=== PATIENT | female | born 1935 | race Caucasian/White ===

== ENCOUNTER 2018-08-04 08:13 | Inpatient (IN) | payer OTHER ==
[~2018-08-04] VITALS: Ht 167.6 cm; Wt 89.1 kg
[2018-08-04] VITALS (30 sets, daily range): BP systolic 101–143; BP diastolic 44–77
[2018-08-04 08:52] LABS: CALCIUM 10.6 mg/dL (8.5-10.1); CREATININE 1.7 mg/dL (0.6-1.0)
[2018-08-04 08:57] LABS: POTASSIUM 2.9 mmol/L (3.5-5.1)
[2018-08-04] MEDS ORDERED: ASPIR 8181 MG PO (09:05)
[2018-08-04 09:06] LABS: HEMATOCRIT 41.7 % (37.0-47.0); HEMOGLOBIN 14.2 gm/dL (12.0-15.0); MCH 32.6 pg (26.0-34.0); MCHC 34.1 g/dL (28.0-37.0); MCV 95.7 fL (80.0-100.0); RBC 4.35 mil/uL (4.20-5.00); RDW 12.8 % (10.5-14.5); WBC 8.6 thou/uL (4.0-11.0)
[2018-08-04] MEDS ORDERED: PLAVIX 75 MG TA75 M1 PO (09:06)
[2018-08-04] MEDS ORDERED: COENZYME Q10100 MG PO (09:06)
[2018-08-04] MEDS ORDERED: FLAXSEED OIL1000 MG PO (09:07)
[2018-08-04] MEDS ORDERED: DHEA 2525 MG PO (09:07)
[2018-08-04] MEDS ORDERED: FOLIC ACID1 MG PO (09:08)
[2018-08-04] MEDS ORDERED: GLUCOSAMINE HC500 MG PO (09:09)
[2018-08-04] MEDS ORDERED: HYALURONIC ACI1 EACH PO (09:10)
[2018-08-04] MEDS ORDERED: IRBESARTAN300 MG PO (09:10)
[2018-08-04] MEDS ORDERED: SYNTHROID100 MC1 PO (09:10)
[2018-08-04] MEDS ORDERED: PROBIOTIC1 EAC1 PO (09:11)
[2018-08-04] MEDS ORDERED: LUTEIN40 MG PO (09:11)
[2018-08-04] MEDS ORDERED: PSYLLIUM FIBE0.52 GM PO (09:12)
[2018-08-04] MEDS ORDERED: ZOCOR20 MG PO (09:12)
--- NOTE | 2018-08-04 12:43 | EKG ---
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
[2018-08-05] VITALS (66 sets, daily range): BP systolic 98–134; BP diastolic 38–61
[2018-08-05 04:41] LABS: HEMATOCRIT 34.7 % (37.0-47.0); MCH 32.7 pg (26.0-34.0); MCHC 34.1 g/dL (28.0-37.0); RBC 3.62 mil/uL (4.20-5.00); WBC 7.6 thou/uL (4.0-11.0)
[2018-08-05 04:44] LABS: CALCIUM 9.4 mg/dL (8.5-10.1); CREATININE 1.2 mg/dL (0.6-1.0)
[2018-08-05 05:00] LABS: HEMOGLOBIN 11.8 gm/dL (12.0-15.0)
--- NOTE | 2018-08-05 05:55 | NUR ---
REPORT RECIEVED FROM SB OLIVEROS AT 2300. AOX4. C/O PAIN, MEDICATED FOR PAIN. AFEBRILE. AFIB ON MONITOR. 2L NC, DESATS IN SLEEP. LEFT GROIN CATH SITE WITH SHEATH IN PLACE. PT EDUCATED ABOUT LAYING FLAT. BLOOD OOZING FROM SITE. LEFT GROIN DRESSING CHANGED AT 0330, PRESSURE HELD FOR APPROXIMATELY 5 MINUTES. LEFT GROIN DRESSING CURRENTLY C/D/I. TPA AND INTEGRILIN FLOWING THROUGH LEFT GROIN. URINE OUTPUT NOTED. NPO AFTER MIDNIGHT. NO COMPLAINS PRESENTLY. WILL CONNTINUE TO MONITOR.
--- NOTE | 2018-08-05 07:30 | NUR ---
ASSUMED CARE OF PT AT 1900. PT ALERT AND ORIENTED X4. NO SIGNS OF ACTIVELY BLEEDING NOTED. HGB THIS AM 6.4. CALLED DR PALMA TO REPORT CRITICAL LAB VALUE ORDERS FOR TRANSUSION GIVEN. PT SR ON THE MONITOR. TACHYCARDIC WITH ACTIVITY. PT DENIES ANY PAIN. NO BM THIS SHIFT. GOOD UO. PT DOES DRIBBLE. LINENS CHANGED THIS MORNING.
[2018-08-05] MEDS ORDERED: ELIQUIS5 MG PO (10:47)
--- NOTE | 2018-08-06 08:38 | DSS ---
[facility] [place] [address] SHORT STAY SUMMARY Name: JORGE GUZMÁN Room #: 236-P [facility]#: [id number] Admission: 08/04/18 Attend Phys: Danny Caldwell MD Discharge: 08/05/18 Date of : 37 Report #: [id number] THIS REPORT FOR: //name// CC: Curtis Nicole DATE OF SERVICE: 08/04/2018 CHIEF COMPLAINT: Right foot pain. HISTORY OF PRESENT ILLNESS: The patient is an 82-year-old female who was admitted by Dr. Caldwell for evaluation and treatment of peripheral artery disease. She has been having a resting ischemic type right foot pain for several months. She has previously had a stent graft and atherectomy in the right leg in January of last year; however, symptoms have progressed and she is admitted for evaluation. There was also concern of an embolic event due to a new diagnosis of atrial fibrillation. She has undergone angiogram and had transcatheter thrombolysis overnight. She has had a followup study this morning and thrombolysis has been discontinued. The plans are for her to discharge later today. PAST MEDICAL HISTORY: Graves' disease, breast cancer, dyslipidemia, hypertension, peripheral artery disease with prior stent graft in the right leg, paroxysmal atrial fibrillation. PAST SURGICAL HISTORY: Mastectomy, ankle surgery, cholecystectomy, hysterectomy, right total knee replacement, skin cancer. FAMILY HISTORY: Noncontributory. SOCIAL HISTORY: No drug or alcohol use, no smoking. Lives at home. ALLERGIES: None. MEDICATIONS: Plavix 75 mg, Zocor 20 mg, irbesartan 300 mg, aspirin 81 mg, acidophilus, fiber, Levoxyl, folic acid and some [id number] supplements. REVIEW OF SYSTEMS: She denies headache, chest pain, shortness of breath, abdominal pain, nausea, vomiting, diarrhea, constipation, dysuria, syncope. PHYSICAL EXAMINATION: VITAL SIGNS: Temperature 36.7, pulse 74, respirations 12, blood pressure 122/57, O2 sat 98% on room air. GENERAL: She is awake and alert, lying in bed, in no distress. HEAD AND NECK: Unremarkable. [facility] [address] [place] [address] SHORT STAY SUMMARY Name: JORGE GUZMÁN Room #: 236-P [facility]#: [id number] Admission: 08/04/18 Attend Phys: Danny Caldwell MD Discharge: 08/05/18 Date of : 39 Report #: [id number] LUNGS: Clear. HEART: Irregular. ABDOMEN: Soft, normoactive bowel sounds. EXTREMITIES: Trace edema. NEUROLOGIC: Motor strength 5/5 throughout. She is alert and oriented. HOSPITAL COURSE: She had been watched in ICU post-procedure overnight. I reviewed IR study reports and spoke to the nurse and daughter at bedside. She has had the peripheral artery disease treated and the plan will be to discharge home. She also reports a nonresponse to oral pain medication at home and her daughter and I agreed to a short course of oral morphine for pain management of the ischemic pain in the right leg. She will then follow up in the office for continued treatment following this. I do not anticipate this being a long-term use situation. On the day of discharge, she was resting in bed and vitals were stable and exam was unremarkable as noted above. FINAL DIAGNOSES: 1. Atrial fibrillation. 2. Peripheral artery disease. 3. Ischemic pain in the right foot. PLAN: She will be discharged to home to resume usual medications plus Eliquis and morphine 5 mg p.r.n. pain. Follow up with Dr. Falk in one week. <ELECTRONICALLY SIGNED> By: Danny Nicole MD 08/06/18 0838 [id number] Danny Nicole MD /nt
== END 2018-08-05 17:52 | disposition home or self-care (01) | DRG 299 ==
LOC: SPEC 08:13 → ICU 17:24 → SPEC 17:25 → ICU 17:25
PROVIDERS: Nuclear Medicine Nuclear Cardiology; Nurse Practitioner Gerontology; ADMIT Internal Medicine Geriatric Medicine
DX: I74.3 Embolism and thrombosis of arteries of the lower extremities (principal); N17.0 Acute kidney failure with tubular necrosis; I73.9 Peripheral vascular disease, unspecified; I48.91 Unspecified atrial fibrillation; I10 Essential (primary) hypertension; E78.5 Hyperlipidemia, unspecified; E03.9 Hypothyroidism, unspecified; Z96.651 Presence of right artificial knee joint; E87.6 Hypokalemia; Z85.3 Personal history of malignant neoplasm of breast; Z79.899 Other long term (current) drug therapy; Z98.49 Cataract extraction status, unspecified eye; Z90.49 Acquired absence of other specified parts of digestive tract; Z90.710 Acquired absence of both cervix and uterus; Z86.711 Personal history of pulmonary embolism; Z90.10 Acquired absence of unspecified breast and nipple
CPT/HCPCS: 10078

== ENCOUNTER → 2018-12-17 | Outpatient (CLI) | payer OTHER ==
[~2018-12-17] VITALS: Ht 165.1 cm; Wt 83.0 kg
[~2018-12-17] MED LIST: ASPIR 8181 MG PO; CALCIUM PO; COENZYME Q10100 MG PO; CYCLOBENZAPRINE5 MG PO; DHEA 2525 MG PO; ELIQUIS5 MG PO; FLAXSEED OIL1000 MG PO; FOLIC ACID1 MG PO; GLUCOSAMINE CH1 EA10 PO; HYALURONIC ACI1 EACH PO; HYDROCHLOROTHIA25 M2 PO; IRBESARTAN300 MG PO; LUTEIN40 MG PO; MULTI VITAMIN1 EACH PO; OXYCODONE-ACET1 EACH PO; PLAVIX 75 MG TA75 M1 PO; PROBIOTIC1 EAC1 PO; PSYLLIUM FIBE0.52 GM PO; SYNTHROID100 MC1 PO; TRAMADOL 50 MG50 MG PO; VITAMIN D5000 UNIT PO; VOLTAREN GEL 1100 G1 TOP; ZOCOR20 MG PO
--- NOTE | ~2018-12-17 | HPC ---
[facility] [address] [place] [address] PAIN MANAGEMENT CONSULTATION Name: JORGE GUZMÁN Room #: REG [facility]#: [id number] Admission: 12/17/18 ������������������ Attend Phys: Gary Paula MD Discharge: ������������������ Date of : 37 Report #: [id number] THIS REPORT FOR: //name// CC: Curtis Paula DATE OF SERVICE: 12/17/2018 CHIEF COMPLAINT: Intense upper back pain. HISTORY OF PRESENT ILLNESS: The patient is an 83-year-old female who has been referred to the pain clinic because of pain, which she has been experiencing in her upper back. Notes that this pain started about 2008. She notes that the pain has been worse over the last 6-8 months. It starts in her upper back, radiates down into her right waist area. Notes that the pain is problematic day in and day out. She has tried heating pads in the past. She has tried rocking back and forth on it to help decrease the pain. She has tried chiropractic treatment. Has had some discomfort in the right shoulder area. Notes that the pain can be problematic after driving for about 5 minutes. has tried hydrocodone. The patient has also had some pain in the right knee and has had a stent placed in her right lower leg. She is anticoagulated because of this. She describes the discomfort as aching, crushing, pulling, throbbing, and sharp. Feels that there is a burning component to it. Rates it as a 10/10 today. Pain improves somewhat after use of heat as well as when bending forward. ALLERGIES: No known drug allergies. CURRENT MEDICATIONS: Vitamin D 5000 units, multivitamins 1 tablet daily, calcium 1200 mg, Flexeril 5 mg t.i.d., oxycodone 5/325 q. 6 hours p.r.n., hydrochlorothiazide 25 mg, Eliquis 5 mg b.i.d., Zocor 20 mg, psyllium fiber, lactobacillus probiotic, Lutein 40 mg, Synthroid 100 mcg, irbesartan 300 mg, hyaluronic acid 40 mg, glucosamine chondroitin 2 tablets, folic acid 1 mg, flaxseed oil, DHEA capsule 25 mg, co-enzyme-Q 10 mg, aspirin 81 mg chewable. PAST MEDICAL HISTORY: Hypertension, gallbladder disease, atrial fibrillation, hypokalemia, history of PE, Graves' disease, joint disease/arthritis. PAST SURGICAL HISTORY: Cholecystectomy, cataracts. 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 REVIEW OF SYSTEMS: Generally good health, fatigue, weakness, cataracts, hearing loss, chronic respiratory/cough, numbness and tingling sensation of right foot. LABORATORY DATA: No new laboratory values are available at the time of our interview. [address] [address] PAIN MANAGEMENT CONSULTATION Name: JORGE GUZMÁN [id number] Admission: 12/17/18 ������������������ Attend Phys: Gary Paula MD Discharge: ������������������ Date of : 37 Report #: [id number] PAIN CLINIC ASSESSMENT/PQRS: 1. Left lower extremity. The patient is not being treated for rheumatoid arthritis. 2. Height 5 feet 5 inches, weight 183 pounds, BMI is 30.5. 3. VITAL SIGNS: Blood pressure 101/58, pulse 111, respiratory rate 20, room air saturation is 100%, pulse 100. 4. Pain intensity 10/10. 5. Fall risk. The patient has not fallen in the last 3 months. 6. Blood thinner. The patient is on a blood thinner, Eliquis. She will stop this medication prior to an injection. 7. Hypertension. The patient is being treated for hypertension. 8. Opioids greater than 6 weeks. 9. Risk assessment tool, low for opioids. 10. Functional assessment tool 64/70. 11. Recreational drug use. The patient denies use of recreational drugs. 12. Tobacco: The patient has never smoked. 13. Alcohol: The patient drinks about one alcoholic beverage monthly. PHYSICAL EXAMINATION: GENERAL: The patient is a well-developed, well-nourished white female. Appears her stated age. She is alert and oriented x 3. Her affect is appropriate. Speech is fluent. HEENT: Normocephalic, atraumatic. Extraocular eye muscles intact. Sclerae nonicteric. Mucous membranes are moist. The patient is wearing glasses. NECK: Without adenopathy or JVD. HEART: History of atrial fibrillation regular today. LUNGS: Clear to auscultation. ABDOMEN: Protuberant. EXTREMITIES: Upper extremity muscle strength judged to be 4+/5 for the major muscle groups in the upper extremity. The patient has some pain and discomfort on the right side with pain that is radiating down from about the bra line to the L3-L4 paraspinous area on the right. Palpation in the area of the right rhomboid causes some reproduction of her discomfort. The patient has some discomfort in the area of the right deltoid as well. Lower extremity muscle strength judged to be 5-/5 for the major muscle groups in the lower extremity. IMPRESSION: 1. Myofascial pain, right shoulder area. 2. Hypertension. 3. Gallbladder disease. 4. Atrial fibrillation. 5. Hypokalemia. 6. History of pulmonary embolism. 7. Graves' disease. 8. Joint disease/arthritis. [facility] [address] [place] [address] PAIN MANAGEMENT CONSULTATION Name: JORGE GUZMÁN Room #: REG MATT Erica.#: [id number] Admission: 12/17/18 ������������������ Attend Phys: Gary Paula MD Discharge: ������������������ Date of : 39 Report #: [id number] RECOMMENDATIONS: We discussed treatment options with the patient. Risks and benefits of a trigger point injection were discussed. The patient is having pain and discomfort in the back area. Palpation in this area does indicate an area of a nidus for pain and discomfort. The patient is on Eliquis. We have the patient refrain from taking Eliquis for 3 days. After that, she will return to the pain clinic at which time we can consider a trigger point injection to the right shoulder/back area. After the trigger point has been elucidated. We would like to thank you for letting us participate in her care. We hope she continues to improve. ��������������������������������������������� ���������������������������������������� By: ��������������������������������������������� 1528 0255 Gary Paula MD /nt
[2018-12-17 13:49] VITALS: BP 101/58
--- NOTE | 2018-12-17 14:21 | NUR ---
Pain Clinic Assessment: 1. History of Osteoarthritis: Right Lower Extremity Left Lower Extremity History of Rheumatoid Arthritis: Not Applicable 2. Height: 5 ft. 5 in. 165.1 cm. Weight: 183.0 lb. oz. 83.008 kg. Patient's BMI: 30.5 3. Vital Signs: BP: 101/58 Pulse: 111 Resp: 20 Temp: 02 Sat: 100 ECG Mon: 4. Pain Intensity: 10 5. Fall Risk: Dizziness: Y Needs help standing or walking: N Fallen in the last 3 months: N Fall risk comments: 6. Patient on Blood Thinner: ELIQUIS 7. History of Hypertension: Y 8. Opioid Therapy greater than 6 weeks: N Opiate Contract Signed: 9. Risk Assessment Tool Provided: 10. Functional Assessment Tool: 64/ 11. Recreational Drug Use: Never Drug Type: Tobacco Use: Never Smoker Tobacco Type: Amount or Packs/day: How Many Years: Alcohol Use: Yes Frequency: Monthly Quant: 1
== END ==
LOC: PAIN 07:02
DX: M79.18 Myalgia, other site (principal); M25.511 Pain in right shoulder; I10 Essential (primary) hypertension; I48.91 Unspecified atrial fibrillation; M19.90 Unspecified osteoarthritis, unspecified site; E05.00 Thyrotoxicosis with diffuse goiter without thyrotoxic crisis or storm; K82.9 Disease of gallbladder, unspecified; E87.6 Hypokalemia; M54.9 Dorsalgia, unspecified

== ENCOUNTER → 2018-12-22 | Outpatient (CLI) | payer OTHER ==
[~2018-12-22] VITALS: Ht 165.1 cm; Wt 83.0 kg
--- NOTE | ~2018-12-22 | HPC ---
[facility] [address] [place] [address] PAIN MANAGEMENT CONSULTATION Name: JORGE GUZMÁN Room #: REG MATT [facility]#: [id number] Admission: 12/22/18 ������������������ Attend Phys: Gary Paula MD Discharge: ������������������ Date of : 37 Report #: [id number] THIS REPORT FOR: //name// CC: Curtis Paula DATE OF SERVICE: 12/22/2018 CHIEF COMPLAINT: Intense pain in the upper back that radiates down to the waist. HISTORY OF PRESENT ILLNESS: The patient is an 83-year-old female who has been referred to the pain clinic for evaluation of upper back pain. The patient states that it started at or before 2008. It involves the upper portion of her back. Radiates from down near the scapula to the lower portion of her back. She rates it as a 10/10 today. Notes that the pain is exacerbated by sitting, standing, cooking. Pain improves when she is lying on her back. Has found that use of a heat pack has been helpful. Rocking back and forth can sometimes improve the condition. Pressure in the area, sometimes helpful. Describes as rhythmic. Denies any trauma or injury. She also describes it as a burning, shooting pain, which is aching, crushing, pulling, throbbing, sharp, stabbing and tender. The patient had an x-ray of her back on 11/30/2018 that showed some arthritis in her upper back. ALLERGIES: No known drug allergies. CURRENT MEDICATIONS: Vitamin D 5000 units, multivitamins 1 tablet daily, calcium 1200 mg, Flexeril 5 mg t.i.d., oxycodone 5/325 every 6 hours p.r.n., hydrochlorothiazide 25 mg, Eliquis 5 mg b.i.d., Zocor 20 mg, Psyllium fiber, lactobacillus probiotic, Lutein 40 mg, Synthroid 100 mcg, irbesartan 300 mg, hyaluronic acid 40 mg, glucosamine chondroitin 2 tablets, folic acid 1 mg, flaxseed oil, DHEA capsule 25 mg, Coenzyme Q10 100 mg, aspirin 81 mg chewable. PAST MEDICAL HISTORY: Hypertension, gallbladder disease, atrial fibrillation, hypokalemia, history of PE, Graves' disease, joint disease/arthritis. PAST SURGICAL HISTORY: Cholecystectomy, cataract removal. 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 REVIEW OF SYSTEMS: Generally good health, fatigue and weakness, cataracts, hearing loss, chronic respiratory cough, numbness and tingling sensation right foot. PAIN CLINIC ASSESSMENT/PQRS: 1. History of osteoarthritis, left lower extremity. [place] [address] PAIN MANAGEMENT CONSULTATION Name: JORGE GUZMÁN [facility] [id number] Admission: 12/22/18 ������������������ Attend Phys: Gary Paula MD Discharge: ������������������ Date of : 39 Report #: [id number] treated for rheumatoid arthritis. 2. Height 5 feet 5 inches, weight 183 pounds, BMI is 30.5. 3. VITAL SIGNS: Blood pressure 109/58, pulse 94, respiratory rate 20, room air saturation is 100%. 4. Pain intensity 10/10. 5. Fall history: The patient has not fallen in the last 3 months. 6. Blood thinner. The patient is on Eliquis. 7. Hypertension. The patient is being treated for hypertension. 8. Opioids greater than 6 weeks. The patient is not on opioid regimen on a regular basis. 9. Risk assessment tool, low for opioid use. 10. Functional assessment 64/70. 11. Recreational drug use. The patient denies. 12. Alcohol: The patient occasionally drinks alcoholic beverage. 13. Tobacco: The patient has never smoked. PHYSICAL EXAMINATION: GENERAL: The patient is a well-developed, well-nourished white female. Appears her stated age. She is alert and oriented x 3. Affect is appropriate. Speech is fluent. HEAD, EYES, EARS, NOSE, AND THROAT: Normocephalic, atraumatic. Extraocular eye muscles intact. Sclerae nonicteric. Mucous membranes moist. The patient is wearing glasses. NECK: Without JVD or adenopathy. HEART: History of atrial fibrillation. LUNGS: Generally clear to auscultation. ABDOMEN: Protuberant. EXTREMITIES: The patient has some pain and discomfort in the lower portion of her back. Palpation in the below the scapula and rhomboid area and down to the right flank area does correspond. The patient states she is having a component of her pain. The patient has some pain in the right deltoid area. Notes that her pain can become more problematic when she sits and drives for about 5 minutes. Lower extremity generally is judged to be 5-/5 for the major muscle groups in lower extremity. IMPRESSION: 1. Myofascial pain, right shoulder area. 2. Hypertension. 3. Gallbladder disease. 4. Atrial fibrillation. 5. Hypokalemia. 6. History of PE. 7. Graves' disease. 8. Joint disease/arthritis. [facility] [address] [place] [address] PAIN MANAGEMENT CONSULTATION Name: JORGE GUZMÁN Room #: REG MATT Ibrahim#: [id number] Admission: 12/22/18 ������������������ Attend Phys: Gary Paula MD Discharge: ������������������ Date of : 39 Report #: [id number] RECOMMENDATIONS: We discussed treatment options with the patient. At this juncture, she does have discrete trigger point in her right shoulder area. In the area of the rhomboids a trigger point was noted. We palpated this area. This does reproduce a component of the patient's pain. Risks and benefits of a trigger point injection were discussed. They include possibility of a pneumothorax. Possibility of worsening of pain, possibility of no improvement in pain and the patient elects to proceed. PROCEDURE NOTE: The patient was placed in the sitting position. Her back was sterilely prepped with a Betadine solution. The right rhomboid area was identified. The trigger point was noted. A 25-gauge needle was then advanced into the area of discomfort. The patient states one of the areas of comfort. A total of 80 mg Depo-Medrol, 40 mg of triamcinolone and 8 mL of 0.5% bupivacaine was injected. The patient tolerated the procedure well. There were no complications. She remained in the Pain Clinic for an appropriate amount of time. She will follow up in the future as needed. We would like to thank you for letting us to participate in her care. We hope she continues to improve. ��������������������������������������������� ���������������������������������������� By: ��������������������������������������������� 0904 1509 Gary Paula MD /SA[place]
[2018-12-22 10:59] VITALS: BP 109/58
--- NOTE | 2018-12-22 11:12 | NUR ---
Pain Clinic Assessment: 1. History of Osteoarthritis: Right Lower Extremity Left Lower Extremity History of Rheumatoid Arthritis: Not Applicable 2. Height: 5 ft. 5 in. 165.1 cm. Weight: 183.0 lb. oz. 83.008 kg. Patient's BMI: 30.5 3. Vital Signs: BP: 109/58 Pulse: 94 Resp: 20 Temp: 02 Sat: 100 ECG Mon: 4. Pain Intensity: 10 5. Fall Risk: Dizziness: Y Needs help standing or walking: Y Fallen in the last 3 months: Y Fall risk comments: 6. Patient on Blood Thinner: ELIQUIS 7. History of Hypertension: Y 8. Opioid Therapy greater than 6 weeks: N Opiate Contract Signed: 9. Risk Assessment Tool Provided: 10. Functional Assessment Tool: 64/ 11. Recreational Drug Use: Never Drug Type: Tobacco Use: Never Smoker Tobacco Type: Amount or Packs/day: How Many Years: Alcohol Use: Yes Frequency: Quant:
== END | disposition home or self-care (01) ==
LOC: PAIN 06:50
DX: M79.18 Myalgia, other site (principal); G89.29 Other chronic pain; I10 Essential (primary) hypertension; I48.91 Unspecified atrial fibrillation; M19.90 Unspecified osteoarthritis, unspecified site; Z87.19 Personal history of other diseases of the digestive system; E05.00 Thyrotoxicosis with diffuse goiter without thyrotoxic crisis or storm; Z79.899 Other long term (current) drug therapy; Z79.01 Long term (current) use of anticoagulants; Z98.890 Other specified postprocedural states; Z90.49 Acquired absence of other specified parts of digestive tract; Z86.711 Personal history of pulmonary embolism; Z79.82 Long term (current) use of aspirin

== ENCOUNTER → 2019-01-19 | Outpatient (CLI) | payer OTHER ==
[2019-01-19 09:56] VITALS: BP 72/39
--- NOTE | 2019-01-19 10:46 | NUR ---
Pain Clinic Assessment: 1. History of Osteoarthritis: Right Lower Extremity Left Lower Extremity History of Rheumatoid Arthritis: Not Applicable 2. Height: 5 ft. 5 in. 165.1 cm. Weight: lb. oz. kg. Patient's BMI: 3. Vital Signs: BP: 72/39 Pulse: 72 Resp: 16 Temp: 02 Sat: 100 ECG Mon: 4. Pain Intensity: 0 NOW PAIN JUST HITS 5. Fall Risk: Dizziness: Y Needs help standing or walking: Y Fallen in the last 3 months: N Fall risk comments: 6. Patient on Blood Thinner: ELIQUIS 7. History of Hypertension: Y 8. Opioid Therapy greater than 6 weeks: N Opiate Contract Signed: 9. Risk Assessment Tool Provided: 10. Functional Assessment Tool: 64/ 11. Recreational Drug Use: Never Drug Type: Tobacco Use: Never Smoker Tobacco Type: Amount or Packs/day: How Many Years: Alcohol Use: Yes Frequency: Quant:
--- NOTE | 2019-01-19 12:37 | NUR ---
OUR TECH TOOK PATIENT VITAL SIGNS-PATIENT WAS VERY HYPOTENSION-TOOK BLOOD PRESSURE WITH MANUAL CUFF. SITTING AND USING RIGHT ARM HER BLOOD PRESSURE WAS 82/30. I TOOK IT TO DO A DOUBLE CHECK-IT WAS 72/39. WE STOOD HER UP-SHE REPORTED FEELING DIZZY AND LIGHT HEADED-HER BLOOD PRESSURE WAS 60/32. HEART RATE WAS ANYWHERE FRON 66-108. SUGGESTED SHE GO TO ER BUT SHE DECIDED TO GO HOME AND CALL HER DOCTOR. WARNED HER TO TAKE HER TIME GETTING UP FROM A SITTING POSITION-TO USE HER WALKER AND TO MONITOR HER BLOOD PRESSURE AT HOME AND TO MAKE SURE SHE FOLLOWED UP WITH HER PCP.
--- NOTE | 2019-01-26 17:05 | HPC ---
[facility] [address] [place] [address] PAIN MANAGEMENT CONSULTATION Name: JORGE GUZMÁN Room #: REG Fran MarkelMannyMarkel#: [id number] Admission: 01/19/19 ������������������ Attend Phys: Gary Paula MD Discharge: ������������������ Date of : 37 Report #: [id number] THIS REPORT FOR: //name// CC: Curtis Paula DATE OF SERVICE: 01/19/2019 CHIEF COMPLAINT: Pain in the upper back persists. Pain in the upper shoulder, improved. HISTORY: The patient is an 83-year-old female who has been followed in the pain clinic because of chronic back pain. She has had pain, which started before 2008. Involves the upper portion of her back. Notes some pain in the area of the scapula and that it radiates down into the lower portion of her back. She noted improvement after the last injection. Pain in the upper portion of the shoulder area has improved. Still has pain in the lower portion of her back. Finds that rocking back and forth can be helpful. She denies trauma. She has had some slight occasions of lightheadedness. She is not having much pain in the back area today. She would like to consider an injection in the area that still remains sore and problematic. ALLERGIES: No known drug allergies. CURRENT MEDICATIONS: Vitamin D 5000 units, multivitamins 1 tablet, calcium 1200 mg, Flexeril 5 mg t.i.d., oxycodone 5/325 q. 6 hours, hydrochlorothiazide 25 mg, Eliquis 5 mg b.i.d., Zocor 20 mg, psyllium fiber, lactobacillus probiotic, lutein 40 mg, Synthroid 100 mcg, irbesartan 300 mg, hyaluronic acid 40 mg, glucosamine chondroitin 2 tablets, folic acid 1 mg, flaxseed oil, DHEA capsule 25 mg, co-enzyme Q10 100 mg, aspirin 81 mg chewable. PAIN CLINIC ASSESSMENT/PQRS: 1. History of osteoarthritis in the lower extremity. The patient is not being treated for rheumatoid arthritis. 2. Height 5 feet 5 inches, weight approximately 183 pounds, BMI approximately 83.1. 3. VITAL SIGNS: Blood pressure 72/39, pulse 72, respiratory rate 16, room air saturation is 100%. 4. Pain intensity 0 at this point, but sore spot is noted in the low back area. 5. Fall history: The patient has not fallen in the last 3 months. 6. Blood thinner. The patient is on Eliquis, but has stopped this with the desire to undergo an injection today. 7. History of hypertension. The patient is being treated for hypertension. 8. Opioids greater than 6 weeks. The patient is not on opioid regimen. 9. Risk assessment tool, low for opioid use. 10. Functional assessment tool 64/70. [address] [address] PAIN MANAGEMENT CONSULTATION Name: JORGE GUZMÁN Room #: REG MATT Ibrahim#: [id number] Admission: 01/19/19 ������������������ Attend Phys: Gary Paula MD Discharge: ������������������ Date of : 37 Report #: [id number] 11. Recreational drug use. The patient denies. 12. Tobacco: The patient has never smoked. 13. Alcohol: The patient occasionally drinks alcoholic beverages. PHYSICAL EXAMINATION: GENERAL: The patient is a well-developed, well-nourished white female. She appears her stated age. She is alert and oriented x 3. Affect is appropriate. Speech is fluent. The patient has had some episodes of lightheadedness. HEENT: Normocephalic, atraumatic. Extraocular eye muscles intact. Sclerae nonicteric. Mucous membranes are moist. The patient is wearing glasses. NECK: Without adenopathy or JVD. HEART: History of atrial fibrillation. The patient has heart rate varying from 80-108. LUNGS: Generally clear. ABDOMEN: Protuberant. EXTREMITIES: The patient has some pain and discomfort in the posterior portion of her back near the rhomboid area. IMPRESSION: 1. Hypotension with some orthostatic changes. 2. Hypertension. 3. Gallbladder disease. 4. Atrial fibrillation. 5. Hypokalemia. 6. History of pulmonary embolism. 7. Graves' disease. 8. Joint disease/arthritis. RECOMMENDATIONS: We discussed the situation with the patient and her daughter. The patient is having episodes where her blood pressures have been dynamic. They have fallen to systolics of 80, and a diastolic of 39. The patient does look and feels difference in her constitution. We have discussed postponing an injection until she feels better. Because of the low blood pressures, we would recommend that the patient contact her primary care physician to get direction. She may simply be volume depleted. Recommend that she drank Gatorade as well as given that she is somewhat unstable on her feet. Consider a bicycle helmet. Should she fall hopefully, this will protect her from hitting her head in the bathroom on the kitchen areas. We had a long conversation with the patient and her daughter in regards to the efficacy of wearing a helmet for head protection. She will follow up in the near future. Hopefully, over the next day things will stabilize, at which time she will return to the Pain Clinic for the possibility of ____ thoracic/trigger point injection. [facility] [address] [place] [address] PAIN MANAGEMENT CONSULTATION Name: JORGE GUZMÁN Room #: REG [facility].#: [id number] Admission: 01/19/19 ������������������ Attend Phys: Gary Paula MD Discharge: ������������������ Date of : 37 Report #: [id number] We would like to thank you for letting us participate in her care. We hope she continues to improve. ��������������������������������������������� <ELECTRONICALLY SIGNED> ���������������������������������������� By: Gary Paula MD ��������������������������������������������� 01/26/19 1705 1610 2326 Gary Paula MD /nt
== END ==
LOC: PAIN 01-12 13:18
DX: M54.9 Dorsalgia, unspecified (principal); M25.519 Pain in unspecified shoulder; I10 Essential (primary) hypertension; I48.91 Unspecified atrial fibrillation; K82.9 Disease of gallbladder, unspecified; I95.1 Orthostatic hypotension; E87.6 Hypokalemia; E05.00 Thyrotoxicosis with diffuse goiter without thyrotoxic crisis or storm; M19.90 Unspecified osteoarthritis, unspecified site; Z88.8 Allergy status to other drugs, medicaments and biological substances; Z86.711 Personal history of pulmonary embolism

== ENCOUNTER → 2019-01-21 | Outpatient (CLI) | payer OTHER ==
[2019-01-21 12:49] VITALS: BP 140/62
--- NOTE | 2019-01-21 12:55 | NUR ---
Pain Clinic Assessment: 1. History of Osteoarthritis: Right Lower Extremity Left Lower Extremity History of Rheumatoid Arthritis: Not Applicable 2. Height: 5 ft. 5 in. 165.1 cm. Weight: lb. oz. kg. Patient's BMI: 3. Vital Signs: BP: 140/62 Pulse: 71 Resp: 18 Temp: 02 Sat: 100 ECG Mon: 4. Pain Intensity: 0 NOW PAIN 9-10 WHEN HIT 5. Fall Risk: Dizziness: N Needs help standing or walking: N Fallen in the last 3 months: N Fall risk comments: 6. Patient on Blood Thinner: ELIQUIS 7. History of Hypertension: Y 8. Opioid Therapy greater than 6 weeks: N Opiate Contract Signed: 9. Risk Assessment Tool Provided: 10. Functional Assessment Tool: 64/ 11. Recreational Drug Use: Never Drug Type: Tobacco Use: Never Smoker Tobacco Type: Amount or Packs/day: How Many Years: Alcohol Use: Yes Frequency: Quant:
--- NOTE | 2019-01-26 17:05 | HPC ---
[facility] [address] [place] [address] PAIN MANAGEMENT CONSULTATION Name: JORGE GUZMÁN Room #: REG [facility] [place]#: [id number] Admission: 01/21/19 ������������������ Attend Phys: Gary Paula MD Discharge: ������������������ Date of : 37 Report #: [id number] THIS REPORT FOR: //name// CC: Curtis Paula DATE OF SERVICE: 01/21/2019 CHIEF COMPLAINT: "I am feeling better." HISTORY: The patient is an 83-year-old female who has been seen in the pain clinic in the past because of shoulder and back pain. She was seen recently in the pain clinic. She has had systolic blood pressures of about 80. She was also exhibiting some orthostatic changes. She states she went to her primary physician. Her blood pressure medication has been changed. She is feeling much better at this point. She has returned today for an injection in the mid back area, which has been problematic. She underwent a trigger point injection to one trigger point in the shoulder and scapular area and trigger point has improved. Still has some pain and discomfort in the area of the lower back near the right side. ALLERGIES: No known drug allergies. CURRENT MEDICATIONS: Vitamin D 5000 units, multivitamin 1 tablet daily, calcium 1200 mg, Flexeril 5 mg t.i.d., oxycodone 5 mg one p.o. 4-6 hours, hydrochlorothiazide 25 mg, Eliquis 5 mg b.i.d., Zocor 20 mg, psyllium fiber, lactobacillus probiotic, Lutein 40 mg, Synthroid 100 mcg, irbesartan 300 mg, hyaluronic acid 40 mg, glucosamine chondroitin 2 tablets, folic acid 1 mg, flax seed oil, DHEA 25 mg, Coenzyme Q10 100 mg, aspirin 81 mg chewable. PAIN CLINIC ASSESSMENT/PQRS: 1. Osteoarthritis: The patient has some osteoarthritic changes in her lower extremity. The patient is not being treated for rheumatoid arthritis. 2. Height 5 feet 10 inches, weight 183 pounds, BMI is 30. 3. Vital signs: Blood pressure 140/62, heart rate 71, respiratory rate 18, room air saturation 100%. 4. Pain intensity: 0 without movement, 9-10 with activity. 5. Fall risk: The patient has not fallen in the last 3 months. 6. Blood thinner: The patient is not on a blood thinning medication. She has stopped taking her Eliquis. 7. History of hypertension: The patient is being treated for hypertension. 8. Opioids greater than 6 weeks: The patient is receiving opioid medications to help control the pain. 9. Risk assessment tool: Low for opioid use. 10. Functional assessment tool: 64/70. 11. Recreational drug use: The patient denies. [address] [address] PAIN MANAGEMENT CONSULTATION Name: JORGE GUZMÁN [id number] Admission: 01/21/19 ������������������ Attend Phys: Gary Paula MD Discharge: ������������������ Date of : 37 Report #: [id number] 12. Tobacco: The patient has never smoked. 13. Alcohol: The patient occasionally drinks alcoholic beverages. PHYSICAL EXAMINATION: GENERAL: The patient is a well-developed, well-nourished white female. Appears her stated age. She is alert and oriented x 3. Her affect is appropriate. Speech is fluent. HEENT: Normocephalic, atraumatic. Extraocular eye muscles intact. Sclerae nonicteric. Mucous membranes are moist. NECK: Without adenopathy or JVD. The patient is wearing glasses. HEART: Regular rate. History of atrial fibrillation, stable. LUNGS: Clear to auscultation without rhonchi or rales. ABDOMEN: Protuberant. EXTREMITIES: Upper extremity muscle strength judged to be 5/5 for the major muscle groups in the upper extremity. The patient has pain and discomfort in the right flank area. Has soreness and discomfort in the midback with pain in the area of approximately the 9th rib. Palpation in the area of the latissimus dorsi reproduces pain and discomfort. IMPRESSION: 1. Myofascial pain improved after injection. 2. Pain in the right low back area near the ninth rib, in the area of the latissimus dorsi. 3. Gallbladder disease. 4. Atrial fibrillation. 5. Hypokalemia. 6. History of pulmonary embolism. 7. Graves' disease. 8. Joint disease/arthritis. RECOMMENDATIONS: We discussed treatment options with the patient. The patient has undergone trigger point injection and noted improvement in the first trigger point area. Still has a second trigger point area that has remained somewhat problematic. The patient has returned today. She is feeling better. She has had the blood pressure medication changed. She is feeling much more herself. She would like to proceed with an injection. Her daughter is present. The patient was placed in the sitting position. Her back was palpated in the area of the right T9 area. Palpation over the latissimus dorsi caused a reproduction of the patient's pain. We discussed the risks and benefits of the injection, which could include infection, bleeding, worsening of pain, no improvement in pain, pneumothorax/tension pneumothorax and the patient elects to proceed. PROCEDURE NOTE: The patient was placed in the sitting position. Her back was sterilely prepped and the area of the right thoracic area near T10. Over the latissimus dorsi, palpation reproduced the patient's discomfort. This area was then infiltrated 8 mL of 0.5% bupivacaine and 40 mg triamcinolone. The patient [facility] [address] [place] [address] PAIN MANAGEMENT CONSULTATION Name: JORGE GUZMÁN Room #: REG [facility].#: [id number] Admission: 01/21/19 ������������������ Attend Phys: Gary Paula MD Discharge: ������������������ Date of : 37 Report #: [id number] states that the pain decreased. She remained in the pain clinic for an appropriate amount of time. She will follow up in the future as needed. We would like to thank you for letting us participate in her care. We hope she continues to improve. ��������������������������������������������� <ELECTRONICALLY SIGNED> ���������������������������������������� By: Gary Paula MD ��������������������������������������������� 01/26/19 1705 1454 0044 Gary Paula MD /[facility]
== END | disposition home or self-care (01) ==
LOC: PAIN 06:55
DX: M79.18 Myalgia, other site (principal); I10 Essential (primary) hypertension; K82.8 Other specified diseases of gallbladder; I48.91 Unspecified atrial fibrillation; E87.6 Hypokalemia; E05.00 Thyrotoxicosis with diffuse goiter without thyrotoxic crisis or storm; M19.90 Unspecified osteoarthritis, unspecified site; Z98.890 Other specified postprocedural states; Z79.899 Other long term (current) drug therapy

== ENCOUNTER → 2019-02-17 | Outpatient (CLI) | payer OTHER | LOC: MRI 15:00 | DX: M51.86 Other intervertebral disc disorders, lumbar region (principal); M51.87 Other intervertebral disc disorders, lumbosacral region; M48.061 Spinal stenosis, lumbar region without neurogenic claudication ==

== ENCOUNTER → 2019-02-23 | Outpatient (CLI) | payer OTHER ==
[~2019-02-23] VITALS: Ht 167.6 cm; Wt 83.5 kg
[~2019-02-23] MED LIST changes: +OMEPRAZOLE 20 M20 M1 PO
[2019-02-23 07:46] LABS: HEMATOCRIT 28.5 % (37.0-47.0); HEMOGLOBIN 9.1 gm/dL (12.0-15.0)
--- NOTE | 2019-02-23 08:44 | EKG ---
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 : 1935 Requested By: Charleen Summers Order Number: [id number] MD: Rick Wheat Measurements Intervals [place] Rate: 93 P: FL: QRS: 30 QRSD: 98 T: 10 QT: 343 QTc: 427 Interpretive Statements Atrial fibrillation Borderline ST depression, diffuse leads Compared to ECG 08/04/2018 08:57:41 no significant change was found Electronically Signed On 02-23-2019 8:44:44 CDT by Rick Wheat [email or web address] ��������������������������������������������� <ELECTRONICALLY SIGNED> ���������������������������������������� By: Rick Wheat MD, [facility] ��������������������������������������������� 02/23/19 0844 D: [id number] Rick Wheat MD, FACC /EPI
--- NOTE | 2019-03-01 14:06 | PATH ---
[facility] [address] [place] [address] PATHOLOGY RPT PROCEDURE Name: JORGE BERG Room #: REG MATT Erica.#: [id number] ������������������ Admission: 02/23/19 ������������������ Date of : 37 Discharge: Report #: [id number] Path Case #: [id number] [facility] Accession Number: [id number] . 01 Material submitted: . PART A: stomach - BX GASTRITIS PART B: cecum - BX POLYP/MASS AT ILEOCECAL VALVE PART C: colon - POLYP AT ASCENDING COLON X3. Modifiers: ascending . 01 Clinical history: . Pre-OP DX: Iron deficiency anemia, heme positive stool Post-OP DX: Gastric ulcers, gastritis, hiatal hernia, esophageal ulcers, esophagitis, ileocecal mass, colon polyps, diverticulosis, internal hemorrhoids, external hemorrhoid . 02 Diagnosis: A. Gastric mucosa, gastritis rule out H. pylori, endoscopic biopsy: - Mild reactive gastropathy. - Negative for intestinal metaplasia or atrophy. - Negative for Helicobacter pylori (properly controlled immunohistochemical stain performed). . B. Polyp/mass, at ileocecal valve, endoscopic biopsy: - INVASIVE MODERATELY DIFFERENTIATED ADENOCARCINOMA (PLEASE SEE COMMENT). - TUBULAR ADENOMA ASSOCIATED WITH HIGH-GRADE DYSPLASIA PRESENT IN THE BACKGROUND. . C. Polyp x3, ascending colon, endoscopic biopsy: - Tubular adenoma, multiple fragments. - Negative for high-grade dysplasia. (IUV:construction executive; 02/24/2019) MBR 02/24/2019 1228 Local . 02 Comment: Co-review: Dr. Essence Cowart (part B only). . Findings of this case are relayed to Dr. Serrano at approximately 12:15 p.m. on 02/24/19. . Per the [facility] cancer commitee protocol, MSI markers (four immunohistochemical stains) are ordered on block B1 and the results of these will be reported in an addendum to follow. (IUV:construction executive; 02/24/2019) . 02 Addendum: . This addendum is issued subsequent to performing four immunohistochemical stains (MSH2, MSH6, PMS2 and MLH1) on block B1 per [facility] [place] [address] PATHOLOGY RPT PROCEDURE Name: JORGE BERG Room #: REG MATT Ibrahim#: [id number] ������������������ Admission: 02/23/19 ������������������ Date of : 37 Discharge: Report #: [id number] Path Case #: [id number] protocol. . . MICROSATELLITE INSTABILITY REPORT (MSI): . Reason for testing: To evaluate for evidence of defective mismatch repair proteins. Method: Immunohistochemical staining for the presence or absence of protein expression of one or more of the following MMR protein markers: MLH1, MSH2, MSH6 and PMS2. Tumor type: Invasive adenocarcinoma . Results: MLH1 -Preserved MSH2 -Preserved MSH6 -Preserved PMS2 -Preserved . Mismatch Repair Status:MMR Proficient (MMR-P) . Interpretation: . (MMR-P) All four MMR proteins are preserved within tumor cells. This suggests the presence of normal DNA mismatch repair function within the tumor and an observable defect in mismatch repair is not identified. The likelihood that this patient has an inherited germline mutation syndrome due to defective mismatch repair is reduced but not totally eliminated. If the patient has a strong personal or family history of HPNCC/Milligan syndrome related cancers (colorectal, endometrial, gastric, ovarian, pancreatic, ureter/renal pelvis, biliary tract, brain, small bowel and [place]-Ross syndrome), consider MSI testing by PCR methodology. Suggest clinical correlation and follow up. . These test results are designed for screening purposes only and are useful tools in identifying cancer patients that are more likely to have Milligan Syndrome related diagnoses. Tests should be interpreted in the context of clinical findings, family history and laboratory data. Abnormal IHC results for MMR protein expression are not considered diagnostic for Milligan Syndrome. . (IUV:mml; 03/01/2019) . . Professional services performed by [facility] at [facility], [address] [place], [place] [address], [place] [address]. Technical services performed by [facility] at [address] [place] [address], [address], [place] [address]. [facility]/03/01/2019 Addendum Electronically Signed by Jocelyn Amos MD, Pathologist [facility] [address] [place] [address] PATHOLOGY RPT PROCEDURE Name: JORGE BERG Room #: [facility] MATT TapiaR#: [id number] ������������������ Admission: 02/23/19 ������������������ Date of : 37 Discharge: Report #: [id number] Path Case #: [id number] . 02 Electronically signed: . Jocelyn Amos MD, Pathologist NPI- [id number] . 01 Gross description: . A. Received in formalin labeled "Morena Jorge, PAULINE gastritis, rule out H. pylori," are 3 segments of saldaña soft tissue measuring 1.1 x 0.7 x 0.3 cm in aggregate dimensions and ranging from 0.3 to 0.7 cm in maximum dimension. The specimen is submitted entirely in cassette A1. . B. Received in formalin labeled "Jorge Berg, BX polyp/mass at ileocecal valve," are multiple segments of saldaña soft tissue measuring 1.7 x 0.6 x 0.1 cm in aggregate dimensions. The specimen is filtered and entirely submitted in cassette B1. . C. Received in formalin labeled "Jorge Berg, polyp at ascending colon x3," are 4 segments of saldaña soft tissue measuring 1.1 x 0.5 x 0.3 cm in aggregate dimensions and ranging from 0.3 to 0.7 cm in maximum dimension. The specimen is submitted entirely in cassette C1. (TSD; 02/23/2019) TOB/TOB 02/23/2019 1804 Local . 02 Pathologist provided ICD-10: K31.9, C18.0, D12.0, D12.2 . 02 CPT . 615961, 451393, 537090, L43324, G61302 Specimen Comment: A courtesy copy of this report has been sent to Specimen Comment: [phone], . Specimen Comment: Report sent to / DR VASQUEZ Performed at: [address] [place] [address] [address], [place], [place] [id number] MD Gustabo Botello MD Phone: [phone] Performed at: [address] [id number] MD Jocelyn Amos MD Phone: [phone]
--- NOTE | 2019-03-02 08:38 | P ---
[facility] [place] [address] PROCEDURE REPORT Name: JORGE GUZMÁN [facility]: [facility] [id number] Admission: 02/23/19 ������������������ Attend Phys: Telly Kelly Discharge: ������������������ Date of : 37 Report #: [id number] THIS REPORT FOR: //name// CC: ENRIQUETA Falk DATE OF SERVICE: 02/23/2019 PROCEDURE PERFORMED: Upper endoscopy with biopsies. HISTORY OF PRESENT ILLNESS: The patient is an 83-year-old female with a history of anemia, drop in hemoglobin from 14 to 10 recently. Hemoccult positive. She has been on aspirin and Eliquis for a history of PE, right lower extremity stent placement and history of DVT. She has been holding her anticoagulation therapy for the last week. She denies any obvious bright red blood per rectum or melena. No previous history of upper endoscopy. She denies any dysphagia or heartburn symptoms. Plan is for EGD and colonoscopy today. DESCRIPTION OF PROCEDURE: The risks and benefits of the procedure were explained to the patient, those risks including but not limited to bleeding, perforation and the risk of sedation. She understood these risks and gave informed consent. Sedation was given using propofol per anesthesia. Next, using a standard Olympus upper endoscope, the scope was placed in the patient's mouth and advanced under direct vision through the esophagus, stomach and into the second portion of the duodenum. The larynx was normal in appearance. The upper and mid esophagus was normal. In the distal esophagus, at the GE junction, grade A erosive esophagitis was noted. No evidence of bleeding. Upon entering the stomach, a small hiatal hernia was noted. Overall, the gastric mucosa was normal in the fundus and body. In the gastric antrum, a mild gastritis was noted. Two clean white based ulcers, 3-5 mm, were noted. No evidence of bleeding. Biopsies were obtained to rule out H. pylori. The pylorus was normal and patent. The duodenal bulb, first and second portion were all normal. The scope was then withdrawn and the procedure terminated. The patient tolerated the procedure well. IMPRESSION: 1. Two small gastric ulcers, nonbleeding. 2. Mild gastritis. 3. Small hiatal hernia. 4. Grade A erosive esophagitis. 5. Otherwise, normal upper endoscopy. RECOMMENDATIONS: 1. Await biopsy results. 2. Would recommend long-term PPI therapy as the patient will be on long-term [address] [address] PROCEDURE REPORT Name: JOREG GUZMÁN Room #: REG MATT Ibrahim#: [id number] Admission: 02/23/19 ������������������ Attend Phys: Telly Kelly Discharge: ������������������ Date of : 37 Report #: [id number] aspirin and Eliquis. Above findings could result in anemia, no signs of bleeding at this time. 3. We will proceed with colonoscopy next today. Thank you for allowing me to participate in her care. ��������������������������������������������� <ELECTRONICALLY SIGNED> ���������������������������������������� By: Telly Serrano MD ��������������������������������������������� 03/02/19 0838 0849 2235 Telly eSrrano MD /nt
--- NOTE | 2019-03-02 08:38 | P ---
[facility] [place] [address] PROCEDURE REPORT Name: JORGE GUZMÁN [facility] [id number] Admission: 02/23/19 ������������������ Attend Phys: Telly Kelly Discharge: ������������������ Date of : 39 Report #: [id number] THIS REPORT FOR: //name// CC: ENRIQUETA Falk DATE OF SERVICE: 02/23/2019 PROCEDURE PERFORMED: Colonoscopy with polypectomies. HISTORY OF PRESENT ILLNESS: The patient is an 83-year-old female with a history of anemia and Hemoccult positive stool. She has had a drop in her hemoglobin 14-10 recently. She has been on Eliquis and aspirin for previous history of stents and DVT as well as a history of PE in the past. She denies any obvious bright red blood per rectum or melena. She is unsure when her last colonoscopy was, but probably 7-10 years ago. No family history of colon cancer. Upper endoscopy was just performed that showed 2 small antral ulcers, no bleeding and grade A erosive esophagitis. Plan is for colonoscopy next today. DESCRIPTION OF PROCEDURE: The risks and benefits of the procedure were explained to the patient, those risks including but not limited to bleeding, perforation and the risk of sedation. She understood these risks and gave informed consent. Sedation was given using propofol per anesthesia. Next, a digital rectal exam was initially performed, which showed external hemorrhoids, nonbleeding, otherwise normal. Next, using a standard Olympus colonoscope, the scope was placed in the patient's anus and advanced under direct vision to the cecum. The overall prep was good. The cecum was normal in appearance. However, on the ileocecal valve, there appears to be adenomatous polyp type of change involving most of the entrance of the valve itself. There is also a portion there that appears to be more firm and friable suggesting the possibility of a mass or cancer. I obtained multiple biopsies of this area. Again, this involves the valve and this was not able to be removed endoscopically. There is no active bleeding noted, but I did notice traces of old blood in the ascending colon when inserting the scope in the proximal ascending colon 3, 4-6 mm sessile polyps were noted. These were removed with a combination of snare cautery and biopsy forceps. The transverse and descending colon were normal. Multiple diverticula were noted in the sigmoid colon, no evidence of inflammation. The rectal mucosa was normal. On retroflexion, small nonbleeding internal hemorrhoids were noted. The scope was then withdrawn and the procedure terminated. The patient tolerated the procedure well. IMPRESSION: 1. Polypoid changes of the entrance of the ileocecal valve with an area concerning for possible mass or cancer. No active bleeding, but friable. Suspect this may be source of recent gastrointestinal bleed and anemia. The [address] [address] PROCEDURE REPORT Name: JORGE GUZMÁN Room #: REG Fran Ibrahim#: [id number] Admission: 02/23/19 ������������������ Attend Phys: Telly Kelly Discharge: ������������������ Date of : 37 Report #: [id number] patient has been off her aspirin and Eliquis at this time. Multiple biopsies were obtained. This will need to be resected surgically. 2. Three small proximal ascending colon polyps removed. 3. Sigmoid diverticulosis. 4. Internal and external hemorrhoids. RECOMMENDATIONS: 1. Await biopsy results. 2. Would recommend surgical consultation for likely right hemicolectomy. Thank you for allowing me to participate in her care. ��������������������������������������������� <ELECTRONICALLY SIGNED> ���������������������������������������� By: Telly Serrano MD ��������������������������������������������� 03/02/19 0838 0929 2250 Telly Serrano MD /nt
== END | disposition home or self-care (01) ==
LOC: GI 07:03
PROVIDERS: Anesthesiology
DX: C18.0 Malignant neoplasm of cecum (principal); D12.0 Benign neoplasm of cecum; D12.2 Benign neoplasm of ascending colon; K31.9 Disease of stomach and duodenum, unspecified; K57.30 Diverticulosis of large intestine without perforation or abscess without bleeding; K64.8 Other hemorrhoids; K64.4 Residual hemorrhoidal skin tags; K25.9 Gastric ulcer, unspecified as acute or chronic, without hemorrhage or perforation; K44.9 Diaphragmatic hernia without obstruction or gangrene; K22.10 Ulcer of esophagus without bleeding; Z79.01 Long term (current) use of anticoagulants; Z79.82 Long term (current) use of aspirin; Z79.899 Other long term (current) drug therapy; Z98.890 Other specified postprocedural states; Z86.718 Personal history of other venous thrombosis and embolism; Z86.711 Personal history of pulmonary embolism
CPT/HCPCS: 62110; 62900

== ENCOUNTER → 2019-02-25 | Outpatient (CLI) | payer OTHER ==
[~2019-02-25] VITALS: Ht 165.1 cm; Wt 85.3 kg
[2019-02-25 12:38] VITALS: BP 161/90
--- NOTE | 2019-02-25 12:58 | NUR ---
Pain Clinic Assessment: 1. History of Osteoarthritis: Right Lower Extremity Left Lower Extremity History of Rheumatoid Arthritis: Not Applicable 2. Height: 5 ft. 5 in. 165.1 cm. Weight: 188.0 lb. oz. 85.276 kg. Patient's BMI: 31.3 3. Vital Signs: BP: 161/90 Pulse: 91 Resp: 18 Temp: 02 Sat: 100 ECG Mon: 4. Pain Intensity: 10 5. Fall Risk: Dizziness: N Needs help standing or walking: N Fallen in the last 3 months: N Fall risk comments: 6. Patient on Blood Thinner: ARANZAQUIS 7. History of Hypertension: Y 8. Opioid Therapy greater than 6 weeks: N Opiate Contract Signed: 9. Risk Assessment Tool Provided: 10. Functional Assessment Tool: 64/ 11. Recreational Drug Use: Never Drug Type: Tobacco Use: Never Smoker Tobacco Type: Amount or Packs/day: How Many Years: Alcohol Use: Yes Frequency: Quant:
== END | disposition home or self-care (01) ==
LOC: PAIN 06:52
DX: M79.18 Myalgia, other site (principal); G89.29 Other chronic pain; I48.91 Unspecified atrial fibrillation; C18.9 Malignant neoplasm of colon, unspecified; Z79.01 Long term (current) use of anticoagulants; Z98.890 Other specified postprocedural states; Z79.899 Other long term (current) drug therapy

== ENCOUNTER → 2019-03-02 | Outpatient (CLI) | payer OTHER ==
[2019-03-02 10:08] LABS: CREATININE 1.5 mg/dL (0.6-1.0)
== END ==
LOC: CAT 09:29
PROVIDERS: Specialist
DX: N28.1 Cyst of kidney, acquired (principal); D64.9 Anemia, unspecified; K57.30 Diverticulosis of large intestine without perforation or abscess without bleeding; Z90.710 Acquired absence of both cervix and uterus; Z96.651 Presence of right artificial knee joint; Z85.3 Personal history of malignant neoplasm of breast; Z79.82 Long term (current) use of aspirin; Z79.899 Other long term (current) drug therapy; Z90.49 Acquired absence of other specified parts of digestive tract

== ENCOUNTER 2019-05-05 11:39 | Observation (INO) | payer OTHER ==
[~2019-05-05] VITALS: Ht 167.6 cm; Wt 86.5 kg
[2019-05-05 12:25] LABS: HEMATOCRIT 27.8 % (37.0-47.0); HEMOGLOBIN 8.1 gm/dL (12.0-15.0); MCH 19.9 pg (26.0-34.0); MCHC 29.3 g/dL (28.0-37.0); MCV 68.1 fL (80.0-100.0); PLATELET COUNT 337 thou/uL (150-400); RBC 4.08 mil/uL (4.20-5.00); RDW 20.1 % (10.5-14.5); WBC 8.4 thou/uL (4.0-11.0)
[2019-05-05 12:39] LABS: ALBUMIN 3.1 g/dL (3.4-5.0); CALCIUM 10.3 mg/dL (8.5-10.1); CREATININE 1.6 mg/dL (0.6-1.0); TOTAL BILIRUBIN 0.3 mg/dL (<0.1-1.0)
[2019-05-05 12:40] LABS: POTASSIUM 4.4 mmol/L (3.5-5.1)
[2019-05-05 12:45] VITALS: BP 115/48
[2019-05-05 13:06] LABS: ABSOLUTE NEUTROPHILS 6.5 thou/uL (1.4-8.2); ANISOCYTOSIS 1+
[2019-05-05 13:07] LABS: HYPOCHROMASIA 1+; MICROCYTES 1+
[2019-05-05 16:00] VITALS: BP 137/42
--- NOTE | 2019-05-05 17:22 | EKG ---
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
[2019-05-05 19:27] VITALS: BP 112/43
[2019-05-05 23:28] VITALS: BP 115/43
[2019-05-05 23:56] VITALS: BP 115/43
[2019-05-06] VITALS (13 sets, daily range): BP systolic 93–149; BP diastolic 50–63
--- NOTE | 2019-05-06 08:03 | EKG ---
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 05/06/19 0803 6 Rick Wheat MD, FACC /EPI
[2019-05-06] MEDS ORDERED: AMIODARONE HCL400 MG PO (17:10)
[2019-05-06] MEDS ORDERED: CARTIA XT240 M1 PO (17:16)
[2019-05-06 17:38] LABS: HEMATOCRIT 32.2 % (37.0-47.0); HEMOGLOBIN 9.8 gm/dL (12.0-15.0)
--- NOTE | 2019-05-08 13:09 | EKG ---
[place] [address] [facility] [place] [address] ELECTROCARDIOGRAM REPORT Name: JORGE GUZMÁN Room #: 214-[facility] M.RMarkel#: [id number] Admission: 05/05/19 Attend Phys: Canelo Mota Discharge: 05/06/19 Date of : 37 Report #: [id number] THIS REPORT FOR: //name// 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 : 1935 Requested By: Marilee Lowe Order Number: [id number] MD: Rick Wheat Measurements Intervals [place] Rate: 69 P: 34 SD: 181 QRS: 34 QRSD: 96 T: 28 QT: 411 QTc: 441 Interpretive Statements Sinus rhythm Small inferior Q waves Compared to ECG 05/06/2019 07:37:22 Atrial fibrillation no longer present Electronically Signed On 05-08-2019 13:09:40 METALLURGICAL OR MATERIALS TECHNICIAN by Rick Wheat [email or web address] <ELECTRONICALLY SIGNED> By: Rick Wheat MD, [facility] 05/08/19 1309 31 31 Rick Wheat MD, FAC /EPI
== END 2019-05-06 18:14 | disposition home or self-care (01) ==
LOC: 2N 11:39 → ENTRNSPT 05-06 17:46 → 2N 05-06 18:14
PROVIDERS: Nurse Practitioner; Nurse Practitioner Adult Health; ADMIT Internal Medicine
DX: I48.0 Paroxysmal atrial fibrillation (principal); E05.00 Thyrotoxicosis with diffuse goiter without thyrotoxic crisis or storm; I10 Essential (primary) hypertension; E78.5 Hyperlipidemia, unspecified; E03.9 Hypothyroidism, unspecified; C18.9 Malignant neoplasm of colon, unspecified; C50.919 Malignant neoplasm of unspecified site of unspecified female breast; Z79.899 Other long term (current) drug therapy; Z79.82 Long term (current) use of aspirin; Z79.01 Long term (current) use of anticoagulants

== ENCOUNTER → 2019-07-20 | Outpatient (CLI) | payer OTHER ==
[~2019-07-20] VITALS: Ht 165.1 cm; Wt 81.4 kg
[~2019-07-20] MED LIST changes: +AMIODARONE HCL400 MG PO; +CARTIA XT180 M1 PO; +PACERONE200 MG PO
--- NOTE | ~2019-07-20 | HPC ---
[facility] [place] [address] PAIN MANAGEMENT CONSULTATION Name: JORGE GUZMÁN Room #: REG MATT Maldonado.#: [id number] Admission: 07/20/19 Attend Phys: Gary Paula MD Discharge: Date of : 37 Report #: [id number] THIS REPORT FOR: cc: Curtis Falk MD, Christopher B. MD Brown,Gary Martinez MD ~ THIS REPORT FOR: //name// CC: Curtis Paula DATE OF SERVICE: 07/20/2019 CHIEF COMPLAINT: Pain in the mid back area has recurred. HISTORY: The patient is an 83-year-old female who has been seen in the Pain Clinic in the past because of myofascial pain. She has experienced pain in the upper back area. Trigger points to the area have been beneficial. She has noticed over the last few days of worsening of pain in the low back area. Usually, the pain would start to decrease, but this has continued to be problematic and she rates it as an 8/10. It is on the right side. She has tried using heat, bending as well as taking medications. Lying flat on a hard surface is somewhat helpful. She has sometimes felt a little unsteady when she rises from a sitting to a standing position quickly. States that she has had some low heart rates, she is going to follow up with her primary physician in that regard. ALLERGIES: No known drug allergies. CURRENT MEDICATIONS: Vitamin D 5000 units, multivitamin 1 tablet, calcium 1200 mg, Flexeril 5 mg t.i.d., oxycodone 5 mg q. 4-6 hours, hydrochlorothiazide 25 mg, Eliquis 5 mg b.i.d., Zocor 20 mg, psyllium fiber, lactobacillus, Lutein 40 mg, Synthroid 100 mcg, irbesartan 300 mg, hyaluronic acid 40 mg, glucosamine chondroitin 2 tablets, folic acid 1 mg, flaxseed oil, DHEA 25 mg, Coenzyme Q10 100 mg, and aspirin 81 mg. PAIN CLINIC ASSESSMENT AND PQRS: 1. The patient has some arthritic changes in her low back. She is not being treated for rheumatoid arthritis. 2. Height 5 feet 5 inches, weight 179 pounds, BMI 29. 3. Vital signs: Blood pressure 119/33, pulse 42, respiratory rate 16, room air saturations 100%. 4. Pain intensity: 8/10. 5. Fall history: The patient has not fallen, but does get a little bit lightheaded if she stands too rapidly. 6. Blood thinner: The patient is on Eliquis. She has stopped taking this over [address] [address] PAIN MANAGEMENT CONSULTATION Name: JORGE GUZMÁN Room #: REG MATT Ibrahim#: [id number] Admission: 07/20/19 Attend Phys: Gary Paula MD Discharge: Date of : 37 Report #: [id number] the last 3 days. 7. History of hypertension. 8. Opioids greater than 6 weeks. 9. Risk assessment tool: Low for opioid use. 10. Functional assessment tool. 11. Recreational drug use: The patient denies recreational drug use. 12. Alcohol: The patient denies frequent use of alcoholic beverages. PHYSICAL EXAMINATION: GENERAL: The patient is a well-developed, well-nourished, white female. She is accompanied by her daughter and great grandson. HEENT: Normocephalic, atraumatic. Extraocular eye muscles intact. Sclerae nonicteric. Mucous membranes are moist. The patient does note some instability if she rises too quickly from the chair. Assistance was provided as she went from her chair to the bed in the room. HEART: Regular. LUNGS: Generally clear. ABDOMEN: Nontender. MUSCULOSKELETAL: Upper extremity muscle strength is judged to be 5-/5 for the major muscle groups of the upper extremity. The patient complains of pain and discomfort in the area of the rhomboids at the lower extent. Also has some discomfort in the area of the latissimus dorsi muscle. IMPRESSION: 1. Myofascial pain. 2. Low heart rate, which can go down into about the 40s with some feeling of lightheadedness, which resolves. 3. History of gallbladder disease. 4. History of atrial fibrillation. 5. Hypokalemia. 6. History of pulmonary emboli. 7. Graves' disease. 7. Joint disease/arthritis. 8. 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 RECOMMENDATIONS: We discussed treatment options with the patient and her daughter. The patient is having pain and discomfort in the mid portion of her back. Palpation in the mid portion near the T10-T11 area indicates reproduction of her pain. We explained the risks and benefits of a trigger point injection in the midline area at T10-T11 and the patient elects to proceed. Possibility of tension pneumothorax was discussed. The patient and her daughter agreed to proceed. PROCEDURE NOTE: The patient was stabilized on the bed. She sat perpendicular to the side of bed. A chair was placed under her feet. Her back was sterilely prepped with chlorhexidine solution and allowed to dry. Palpation of the [facility] [address] [place] [address] PAIN MANAGEMENT CONSULTATION Name: JORGE GUZMÁN Room #: REG CLFran Ibrahim#: [id number] Admission: 07/20/19 Attend Phys: Gary Paula MD Discharge: Date of : 37 Report #: [id number] midline spinal area did note some increased pain and discomfort in the T10-T11 midline and paraspinous muscles. A 25-gauge needle was then advanced into this area. The patient did state that this reproduced her pain and discomfort. Aspiration was negative. A total of 40 mg Depo-Medrol, 40 mg triamcinolone, and 6 mL of 0.5% bupivacaine was injected. The patient tolerated the procedure well. There were no complications. She remained in the Pain Clinic for an appropriate amount of time. Her pain decreased to 0 at the time of discharge. We have spoken with the patient regarding her lightheadedness when she stands. We explained to her the use of a bicycle helmet might be efficacious. She can also use a bicycle helmet should the weather becoming ____. She states that she would give this consideration. We would like to thank you for letting us participate in her care. We hope she continues to improve. By: [id number] Gary Paula MD /nt
[2019-07-20 10:57] VITALS: BP 119/33
--- NOTE | 2019-07-20 11:20 | NUR ---
Pain Clinic Assessment: 1. History of Osteoarthritis: Right Lower Extremity Left Lower Extremity History of Rheumatoid Arthritis: NONE 2. Height: 5 ft. 5 in. 165.1 cm. Weight: 179.4 lb. oz. 81.375 kg. Patient's BMI: 29.9 3. Vital Signs: BP: 119/33 Pulse: 42 Resp: 16 Temp: 02 Sat: 100 ECG Mon: 4. Pain Intensity: 8 5. Fall Risk: Dizziness: Y Needs help standing or walking: Y Fallen in the last 3 months: Y Fall risk comments: 6. Patient on Blood Thinner: ARANZAQUIS 7. History of Hypertension: Y 8. Opioid Therapy greater than 6 weeks: N Opiate Contract Signed: 9. Risk Assessment Tool Provided: 10. Functional Assessment Tool: 64/ 11. Recreational Drug Use: Never Drug Type: Tobacco Use: Never Smoker Tobacco Type: Amount or Packs/day: How Many Years: Alcohol Use: Yes Frequency: Special Occasions Quant:
== END | disposition home or self-care (01) ==
LOC: PAIN 06:58
DX: M79.18 Myalgia, other site (principal); M19.90 Unspecified osteoarthritis, unspecified site; E05.00 Thyrotoxicosis with diffuse goiter without thyrotoxic crisis or storm; Z98.890 Other specified postprocedural states; Z79.899 Other long term (current) drug therapy; Z98.0 Intestinal bypass and anastomosis status; Z85.038 Personal history of other malignant neoplasm of large intestine; Z90.49 Acquired absence of other specified parts of digestive tract; Z87.19 Personal history of other diseases of the digestive system; Z79.01 Long term (current) use of anticoagulants

== ENCOUNTER → 2019-07-26 | Outpatient (CLI) | payer OTHER ==
[~2019-07-26] MED LIST changes: +PROBIOTIC1 EAC7 PO
== END ==
LOC: SJCVC 13:58
DX: R94.31 Abnormal electrocardiogram [ECG] [EKG] (principal); R55 Syncope and collapse; R53.83 Other fatigue; I49.5 Sick sinus syndrome; I48.0 Paroxysmal atrial fibrillation; I10 Essential (primary) hypertension; E03.9 Hypothyroidism, unspecified; E78.00 Pure hypercholesterolemia, unspecified; Z79.82 Long term (current) use of aspirin; Z79.899 Other long term (current) drug therapy; Z85.3 Personal history of malignant neoplasm of breast

== ENCOUNTER 2019-08-03 08:54 | Observation (INO) | payer OTHER ==
[2019-08-03] VITALS (10 sets, daily range): BP systolic 113–149; BP diastolic 44–57
[~2019-08-03] VITALS: Ht 167.6 cm; Wt 75.3 kg
--- NOTE | ~2019-08-03 | D ---
[facility] [place] [address] DISCHARGE SUMMARY Name: JORGE GUZMÁN Room #: 207-[facility] Freddy Ibrahim#: [id number] Admission: 08/03/19 Attend Phys: Canelo Mota Discharge: 08/04/19 Date of : 37 Report #: [id number] THIS REPORT FOR: cc: Curtis Falk MD, Christopher B. 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 PROCEDURES PERFORMED: 1. Implantation of a [employer]. Samuel's dual chamber pacemaker. 2. Supervision of conscious sedation. DISCHARGE MEDICATIONS: 1. Home meds. DISCHARGE DIET: Heart healthy. BRIEF CLINICAL HISTORY: See history and physical in chart. HOSPITAL COURSE: The patient was admitted and brought to the cardiac catheterization laboratory. She underwent a routine implantation of a [employer]. Samuel[employer] dual chamber pacemaker programmed in a DDDR mode. Serial numbers are noted in the specific report. The patient's post-procedure course was unremarkable with chest x-ray demonstrating no significant pneumothorax present. She proceeded without incident, remaining hemodynamically and electrically stable post-procedure with the standard arm immobilizer in place. Instructions were given to the patient and family and subsequently discharged in improved and stable condition to follow up with previously stated discharge instructions and medications. FOLLOWUP: 1. Wound check in 10 days in the office with my nurse. 2. Follow up with me in 4 weeks. By: [id number] Canelo Mota MD /nt
[~2019-08-03 08:54] MED LIST changes: -PROBIOTIC1 EAC7 PO
[2019-08-03 11:05] LABS: CALCIUM 10.1 mg/dL (8.5-10.1); CREATININE 1.8 mg/dL (0.6-1.0)
[2019-08-03 11:06] LABS: POTASSIUM 4.5 mmol/L (3.5-5.1)
[2019-08-03] MEDS ORDERED: PROBIOTIC1 EAC7 PO (12:09)
[2019-08-03] MEDS ORDERED: PACERONE200 MG PO (12:16)
[2019-08-03 14:27] LABS: MCV 67.7 fL (80.0-100.0); WBC 6.7 thou/uL (4.0-11.0)
[2019-08-03 14:29] LABS: HEMATOCRIT 27.9 % (37.0-47.0); HEMOGLOBIN 8.2 gm/dL (12.0-15.0); MCHC 29.6 g/dL (28.0-37.0); PLATELET COUNT 265 thou/uL (150-400); RBC 4.12 mil/uL (4.20-5.00); RDW 23.6 % (10.5-14.5)
[2019-08-03 15:00] LABS: ABSOLUTE NEUTROPHILS 6.4 thou/uL (1.4-8.2); ANISOCYTOSIS 2+; POLYCHROMASIA OCCASIONAL
[2019-08-03 15:01] LABS: HYPOCHROMASIA 1+; LARGE PLATELETS OCCASIONAL; MICROCYTES 2+
--- NOTE | 2019-08-03 18:17 | NUR ---
PATIENT ARRIVED FROM WEIGH BOX TENDER AT 1430, ALERT AND ORIENTED X4 AND FAMILY AT BEDSIDE. S/P PACEMAKER PLACEMENT LT ARM IMMOBOLIZER INPLACE AND PATIENT IS AWARE TO NOT REMOVE IT. VSS, PACED RYTHM ON THE MONITOR, AND ADMISION COMPLETED. WILL CONTINUE WITH POC.
[2019-08-04 00:37] VITALS: BP 136/45
--- NOTE | 2019-08-04 03:17 | NUR ---
ASSESSMENT DOCUMENTED.PT BEEN RESTING IN NO ACUTE DISTRESS POST PACEMAKER PLACEMENT.VSS.ON MONITOR 100% A-PACED.LEFT CHEST PACEMAKER INSERTION SITE COVERED WITH CDI DRESSING,NO HEMATOMA OR SWELLING NOTED,IMMOBILIZER IN PLACE.VOIDING ADEQUATELY.PT DENIES PAIN OR ANY DISTRESS AT THIS TIME.POSSIBLE DISCHARGE TODAY AFTER CXR AND DEVICE CHECK.
[2019-08-04 05:01] VITALS: BP 139/47
[2019-08-04 05:41] LABS: BASOPHILS 0.1 % (0.0-2.0); MCH 20.3 pg (26.0-34.0); PLATELET COUNT 255 thou/uL (150-400); WBC 7.3 thou/uL (4.0-11.0)
[2019-08-04 05:44] LABS: ABSOLUTE NEUTROPHILS 6.3 thou/uL (1.4-8.2); HEMATOCRIT 27.7 % (37.0-47.0); HEMOGLOBIN 8.3 gm/dL (12.0-15.0); LYMPHOCYTES 10.2 % (24.0-44.0); MCHC 29.9 g/dL (28.0-37.0); MCV 68.1 fL (80.0-100.0); MONOCYTES 3.9 % (1.0-8.0); POLYS 85.8 % (36.0-66.0); RBC 4.06 mil/uL (4.20-5.00); RDW 22.9 % (10.5-14.5)
[2019-08-04 07:50] VITALS: BP 148/54
[2019-08-04 12:50] VITALS: BP 132/43
--- NOTE | 2019-08-04 14:37 | NUR ---
Consult for diet instruction s/p pacemaker placement. Pt was unaware of being on a heart healthy diet over admit but was familiar with the diet. Already seems to follow a general, healthy diet at home. Was aware of limiting use of saturated fats and sodium. Provided Pt with heart healthy diet handout and Pt had no further questions. Discharging today. Consider low nutrition risk.
[2019-08-04 14:47] VITALS: BP 132/43
--- NOTE | 2019-08-04 16:07 | NUR ---
ASSUMED CARE AT SHIFT CHANGE, ALERT AND ORIENTED X4. LT UPPER CHEST INCISION COVERED WITH GAUZE AND OPSITE, PATIENT DENIES ANY DISCOMFORT AND IMMOBOLIZER INPLACE. VSS. DISCHARGE AND MEDICATION INSTRUCTIONS GIVEN TO PATIENT AND DAUGHTER, PATIENT VERBALIZED UNDERSTANDING AND PATIENT DISCHARGED HOME.
== END 2019-08-04 16:20 | disposition home or self-care (01) ==
LOC: CATH 08:54 → TBACV 14:08 → 2N 15:45 → CATH 16:12 → ENTRNSPT 08-04 15:44 → EDTRNSPTSTS 08-04 15:46 → 2N 08-04 16:20
PROVIDERS: Internal Medicine Cardiovascular Disease; ADMIT Internal Medicine
DX: I49.5 Sick sinus syndrome (principal); R00.0 Tachycardia, unspecified

== ENCOUNTER → 2019-08-03 | Outpatient (CLI) | payer OTHER ==
[~2019-08-03] VITALS: Ht 165.1 cm; Wt 75.4 kg
[2019-08-03 09:04] VITALS: BP 126/48
--- NOTE | 2019-08-03 09:20 | NUR ---
Pain Clinic Assessment: 1. History of Osteoarthritis: Right Lower Extremity Left Lower Extremity History of Rheumatoid Arthritis: NONE 2. Height: 5 ft. 5 in. 165.1 cm. Weight: 166.2 lb. oz. 75.388 kg. Patient's BMI: 27.7 3. Vital Signs: BP: 126/48 Pulse: 52 Resp: 20 Temp: 02 Sat: 100 ECG Mon: 4. Pain Intensity: 10 5. Fall Risk: Dizziness: Y Needs help standing or walking: Y Fallen in the last 3 months: N Fall risk comments: 6. Patient on Blood Thinner: ARANZAQUIS 7. History of Hypertension: Y 8. Opioid Therapy greater than 6 weeks: N Opiate Contract Signed: 9. Risk Assessment Tool Provided: 10. Functional Assessment Tool: 64/ 11. Recreational Drug Use: Never Drug Type: Tobacco Use: Never Smoker Tobacco Type: Amount or Packs/day: How Many Years: Alcohol Use: Yes Frequency: Quant:
--- NOTE | 2019-08-05 08:29 | HPC ---
[facility] [address] [place] [address] PAIN MANAGEMENT CONSULTATION Name: JORGE GUZMÁN Room #: REG MATT Nichole.#: [id number] Admission: 08/03/19 Attend Phys: Gary Paula MD Discharge: Date of : 37 Report #: [id number] THIS REPORT FOR: cc: Curtis Falk MD, Christopher B. MD Brown,Gary Martinez MD ~ THIS REPORT FOR: //name// CC: Curtis Paula DATE OF SERVICE: 08/03/2019 CHIEF COMPLAINT: Here because of severe back pain. I am going to have a pacemaker placed today and I have to lay on the table for a long time. HISTORY: The patient is an 83-year-old female who has been seen in the pain clinic because of myofascial pain in the upper back area. She has noticed over the past few weeks more pain and discomfort in the low back area. She has had something similar to this in the past. Trigger point injections have been beneficial. She has been having some problems with her heart rate being low. She gets somewhat dizzy when she stands too quickly. It has been determined that her heart rate is low and a pacemaker needs to be placed. The patient is scheduled today for pacemaker placement. She finds it very difficult to lie flat. We will proceed with trigger point injection today to help with the pain. ALLERGIES: No known drug allergies. CURRENT MEDICATIONS: Vitamin D 5000 units, multivitamins 1 tablet, calcium 1200 mg, Flexeril 5 mg t.i.d., oxycodone 5 mg every 4-6 hours, hydrochlorothiazide 25 mg, Eliquis 5 mg b.i.d., Zocor 20 mg, Psyllium fiber, lactobacillus, Lutein 40 mg, Synthroid 100 mcg, irbesartan 300 mg, hyaluronic acid 40 mg, glucosamine and chondroitin 2 tablets, folic acid 1 mg, flaxseed oil, DHEA 25 mg, Coenzyme ____ 100 mg, and aspirin 81 mg. PAIN CLINIC ASSESSMENT AND PQRS: 1. The patient has some arthritic changes in the low back area. She is not being treated for rheumatoid arthritis. 2. Height 5 feet 5 inches, weight 166 pounds, BMI is 27.7. 3. Vital signs: Blood pressure 126/48, pulse 52, respiratory rate 20, room air saturation 100%. 4. Pain intensity 10/10. 5. Fall history: The patient has not fallen in the last 3 months. 6. Blood thinner. The patient is off her Eliquis for the last 3 days. 7. History of hypertension. 8. Opioid therapy greater [place] [address] [place] [address] PAIN MANAGEMENT CONSULTATION Name: JORGE GUZMÁN Room #: REG MATT Ibrahim#: [id number] Admission: 08/03/19 Attend Phys: Gary Paula MD Discharge: Date of : 37 Report #: [id number] 9. Risk assessment tool, low for opioids. 10. Functional assessment tool 64/70. 11. Recreational drug use: The patient denies. 12. Tobacco: The patient has never smoked. 13. Alcohol: The patient drinks alcoholic beverage on occasion. PHYSICAL EXAMINATION: GENERAL: The patient is a well-developed, well-nourished white female. She is accompanied by her daughter. HEENT: Normocephalic, atraumatic. Extraocular eye muscles intact. Sclerae nonicteric. Mucous membranes are moist. The patient is sitting in a chair. She is moving back and forth with a furrowed brow. She appears to be uncomfortable. Complains of pain in the mid portion of her back. HEART: Regular. LUNGS: Generally clear. ABDOMEN: Nontender. EXTREMITIES: Upper extremity muscle strength judged to be 4+/5 for the major muscle groups in the upper extremity. The patient has pain and discomfort to palpation in the area of the T8-T9, T9-T10 interval. Palpation in the midline area near the right paraspinous zones were palpated. At these two levels, the patient complained of significant pain and discomfort in both of these areas. IMPRESSION: 1. Myofascial pain. 2. Low heart rate down to the 40s with lightheadedness, scheduled for pacemaker placement today. 3. History of gallbladder disease. 4. History of atrial fibrillation. 5. Hypokalemia history. 6. History of pulmonary emboli. 7. History of Graves' disease. 8. Joint disease/arthritis. 9. Neoplasm excised from the colon. RECOMMENDATIONS: We discussed treatment options with the patient. At this juncture, possible complications of the injection in the paraspinous area where explained. Possibility of infection, worsening pain, no improvement in pain, tension pneumothorax were all mentioned and the patient elects to proceed. PROCEDURE NOTE: The patient was taken to the procedure area. She was then assisted in getting on the table. She sat perpendicular to the table with a chair under her feet for support. The patient's back was palpated. At the T8-T9 right paraspinal area and T9-T10 paraspinous area palpation reproduced the patient's pain and discomfort. Her back was sterilely prepped with alcohol swab. A 25-gauge needle was then advanced into the area. A total of 20 mg triamcinolone and 5 mL of 0.5% bupivacaine was injected. The patient states [facility] [address] [place] [address] PAIN MANAGEMENT CONSULTATION Name: JORGE GUZMÁN Room #: REG MATT [place]#: [id number] Admission: 08/03/19 Attend Phys: Gary Paula MD Discharge: Date of : 37 Report #: [id number] this was a trigger point and felt some relief from the pain. The next trigger point at T9-T10 was palpated and a 25-gauge needle was injected in this area. A total of 5 mL of 0.5% bupivacaine and 20 mg triamcinolone was injected. The patient tolerated the procedure well. There were no complications. She remained in the Pain Clinic for an appropriate amount of time. Her pain decreased from 10-3 at the time of discharge. There is no breathing problems. She will follow up in the future. Hopefully, she continues to improve after the pacemaker has been placed. <ELECTRONICALLY SIGNED> By: Gary Paula MD 08/05/19 0829 1352 2142 Gary Paula MD /nt
== END | disposition home or self-care (01) ==
LOC: PAIN
DX: M79.18 Myalgia, other site (principal); M19.90 Unspecified osteoarthritis, unspecified site; I48.91 Unspecified atrial fibrillation; Z86.711 Personal history of pulmonary embolism; Z79.01 Long term (current) use of anticoagulants; Z98.890 Other specified postprocedural states; Z79.899 Other long term (current) drug therapy

== ENCOUNTER → 2019-08-23 | Outpatient (CLI) | payer OTHER ==
[~2019-08-23] MED LIST changes: +KLOR-CON 10 ER10 MEQ PO; +PROBIOTIC1 EAC7 PO; +UNICOMPLEX M TA1 TA1 PO
[2019-08-23 11:30] VITALS: BP 118/43
[2019-08-23 13:05] VITALS: BP 125/45
--- NOTE | 2019-08-23 14:34 | NUR ---
IN FOR 1ST INJECTAFER INFUSION. STATED FEELING WELL. PATIENT HAD A PACEMAKER PLACED 3 WEEKS AGO AND STATED CANNOT LIFT LEFT ARM FOR A FEW MONTHS. IV STARTED IN RT AC WITHOUT DIFFICULTY. INJECTAFER INFUSED OVER 25 MINUTES AND TOLERATED WELL. OBSERVED FOR 30 MINUTES. POST VITAL SIGNS GOOD. REMOVED IV AND DISMISSED IN STABLE CONDITION.
== END ==
LOC: OPONC 11:03
DX: D50.0 Iron deficiency anemia secondary to blood loss (chronic) (principal)
CPT/HCPCS: 95000

== ENCOUNTER → 2019-08-30 | Outpatient (CLI) | payer OTHER ==
[2019-08-30 11:20] VITALS: BP 128/41
[2019-08-30 12:37] VITALS: BP 127/44
--- NOTE | 2019-08-30 12:47 | NUR ---
IN FOR 2ND INJECTAFER INFUSION. STATED HAD NO SIDE EFFECTS FROM 1ST INFUSION LAST WEEK, AND FELT A LITTLE BETTER FOR A COUPLE OF DAYS. TOLERATED INFUSION WITHOUT INCIDENT. POST VITAL SIGNS GOOD. OBSERVED FOR 30 MINUTES AND THEN DISMISSED IN STABLE CONDITION.
== END ==
LOC: OPONC 09:28
DX: D50.0 Iron deficiency anemia secondary to blood loss (chronic) (principal)
CPT/HCPCS: 95000

== ENCOUNTER → 2019-09-05 | Outpatient (CLI) | payer OTHER | LOC: SJCVC 13:02 | DX: I48.0 Paroxysmal atrial fibrillation (principal); I49.5 Sick sinus syndrome; I10 Essential (primary) hypertension; E78.00 Pure hypercholesterolemia, unspecified; E03.9 Hypothyroidism, unspecified; Z79.899 Other long term (current) drug therapy; Z79.82 Long term (current) use of aspirin ==

== ENCOUNTER → 2019-10-20 | Outpatient (CLI) | payer OTHER | LOC: SJCVCIMAG 08:29 | DX: I70.201 Unspecified atherosclerosis of native arteries of extremities, right leg (principal); I48.91 Unspecified atrial fibrillation; I10 Essential (primary) hypertension; C50.919 Malignant neoplasm of unspecified site of unspecified female breast; E78.00 Pure hypercholesterolemia, unspecified; E03.9 Hypothyroidism, unspecified; Z90.710 Acquired absence of both cervix and uterus; Z96.651 Presence of right artificial knee joint; Z79.899 Other long term (current) drug therapy ==

== ENCOUNTER 2020-01-19 10:12 | Inpatient (IN) | payer OTHER ==
[~2020-01-19] VITALS: Ht 170.2 cm; Wt 78.9 kg
[2020-01-19 10:16] VITALS: BP 132/46
[2020-01-19 11:38] LABS: ABSOLUTE NEUTROPHILS 11.8 thou/uL (1.4-8.2); BASOPHILS 0.1 % (0.0-2.0); EOSINOPHILS 3.6 % (0.0-3.0); HEMATOCRIT 41.8 % (37.0-47.0); HEMOGLOBIN 14.3 gm/dL (12.0-15.0); LYMPHOCYTES 3.8 % (24.0-44.0); MCH 34.5 pg (26.0-34.0); MCHC 34.2 g/dL (28.0-37.0); MCV 100.8 fL (80.0-100.0); MONOCYTES 7.2 % (1.0-8.0); PLATELET COUNT 245 thou/uL (150-400); POLYS 85.3 % (36.0-66.0); RBC 4.14 mil/uL (4.20-5.00); RDW 15.2 % (10.5-14.5); WBC 13.8 thou/uL (4.0-11.0)
[2020-01-19] MEDS ORDERED: IRON160 M1 PO (11:41)
[2020-01-19 11:52] LABS: APTT 28.8 Seconds (24.5-32.8); INR 1.2; PROTIME 12.6 Seconds (9.3-11.4)
[2020-01-19 13:10] LABS: ALBUMIN 2.4 g/dL (3.4-5.0); ANION GAP 6 mmol/L (7-16); BUN 29 mg/dL (7-18); CHLORIDE 102 mmol/L (98-107); CO2 29 mmol/L (21-32); CREATININE 1.9 mg/dL (0.6-1.0); GLUCOSE 83 mg/dL (74-106); MAGNESIUM 1.8 mg/dL (1.8-2.4); POTASSIUM 3.2 mmol/L (3.5-5.1); SGOT 124 U/L (15-37); SGPT 185 U/L (30-65); SODIUM 137 mmol/L (136-145); TOTAL PROTEIN 6.4 g/dL (6.4-8.2); TROPONIN-I <0.06 ng/mL (<0.06)
[2020-01-19 13:15] LABS: URINE BILIRUBIN NEGATIVE (Negative); URINE BLOOD NEGATIVE (Negative); URINE CLARITY CLEAR; URINE COLOR YELLOW; URINE GLUCOSE-RANDOM* NEGATIVE (Negative); URINE KETONES NEGATIVE (Negative); URINE LEUKOCYTES-REFLEX NEGATIVE (Negative); URINE NITRITE-REFLEX NEGATIVE (Negative); URINE PROTEIN (DIPSTICK) NEGATIVE (Negative); URINE UROBILINOGEN 0.2 E.U./dl (0.2-1.0)
[2020-01-19 13:18] LABS: CALCIUM 12.7 mg/dL (8.5-10.1)
[2020-01-19 13:30] LABS: AMP/METHAMP Negative (Negative); BARBITURATES Negative (Negative); BENZODIAZEPINES Negative (Negative); COCAINE Negative (Negative); METHADONE Negative (Negative); OPIATES Negative (Negative); PCP Negative (Negative)
[2020-01-19 17:06] LABS: CREATININE 1.8 mg/dL (0.6-1.0); PHOSPHORUS 2.6 mg/dL (2.5-4.9)
[2020-01-19 17:09] LABS: CALCIUM 12.1 mg/dL (8.5-10.1)
--- NOTE | 2020-01-19 17:11 | NUR ---
Dr. Sumeet guzmán due to critical calcium at this time
[2020-01-19 18:46] VITALS: BP 141/52
[2020-01-19 20:00] VITALS: BP 129/43
[2020-01-19 20:47] VITALS: BP 150/49
[2020-01-20 03:40] VITALS: BP 154/50
--- NOTE | 2020-01-20 03:43 | NUR ---
PT TO UNIT AROUND 2029. ORIENTED TO UNIT, STAFF AND USE OF CALL LIGHT. PT IS A&OX4. HAS A PACEMAKER, SINUS ON MONITOR. ANTIBIOTICS STARTED, FLUIDS INFUSING PER ORDER. TAKES PILLS WHOLE WITH WATER. UP TO BSC W/ X1 ASSIST. PT IS [employer] [employer] [employer]. NO C/O PAIN, JUST WEAKNESS- HAS BEEN USING W/C AT HOME TO GET AROUND. SPOKE TO DTR, GAVE HER AN UPDATE AND WENT THRU MEDS WITH HER, REUPDATED MED LIST. VSS WNL. ASSESSMENT CHARTED. PT IS CURRENTLY SLEEPING WITH NO COMPLAINTS AT THIS TIME.
[2020-01-20 06:22] LABS: MCH 34.1 pg (26.0-34.0); MCHC 33.3 g/dL (28.0-37.0); MCV 102.5 fL (80.0-100.0); RBC 3.8 mil/uL (4.20-5.00); RDW 15.2 % (10.5-14.5); WBC 9.4 thou/uL (4.0-11.0)
[2020-01-20 06:52] LABS: CALCIUM 11.4 mg/dL (8.5-10.1); CREATININE 1.8 mg/dL (0.6-1.0)
[2020-01-20 06:55] LABS: POTASSIUM 2.9 mmol/L (3.5-5.1)
[2020-01-20 07:49] VITALS: BP 160/72
--- NOTE | 2020-01-20 09:11 | EKG ---
[facility] [place] [address] ELECTROCARDIOGRAM REPORT Name: JORGE GUZMÁN Room #: 359- ADM IN M.R.#: [id number] Admission: 01/19/20 Attend Phys: Bahman Beck MD Discharge: Date of : 37 Report #: [id number] THIS REPORT FOR: cc: Curtis Falk MD, Christopher B. 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[facility] 1935 Requested By: Adam Srivastava Order Number: [id number] MD: Rick Wheat Measurements Intervals [place] Rate: 62 P: [place]: 69 QRS: 43 QRSD: 115 T: 29 QT: 565 QTc: 574 Interpretive Statements Atrial-paced rhythm Nonspecific intraventricular conduction delay Borderline repolarization abnormality Compared to ECG 05/06/2019 16:32:53 Atrial pacing is now present Electronically Signed On 01-20-2020 9:11:17 CDT by Rick Wheat [email or web address] <ELECTRONICALLY SIGNED> By: Rick Wheat MD, [facility] 01/20/20 0911 1117 1117 Rick Wheat MD, [facility] /EPI
--- NOTE | 2020-01-20 12:02 | NUR ---
ASSUMMED PT CARE AT APPROXIMATELY 0700. PT A&OX4. ASSESSMENT CHARTED. FALL PRECAUTIONS IN PLACE. PT DENIES HAVING CHEST PAIN. PT DENIES HAVING SOB. PT DENIES HAVING ACUTE PAIN. VITAL SIGNS STABLE. PT COMFORTABLE IN BED. PT AMBULATES STEADY C STANDBY C WALKER. PT TRANSFERING TO . GAVE REPORT TO SB MYRICK. RAMEZ STATED UNDERSTANDING AND DENIED HAVING FURTHER CONCERNS.
[2020-01-20 12:04] VITALS: BP 188/55
[2020-01-20 15:59] VITALS: BP 152/56
--- NOTE | 2020-01-20 17:55 | NUR ---
PT CARE ASSUMED APPROX 1230. ASSESSMENT CHARTED. PT DENIES PAIN AND SOA. VSS. DAUGHTER AT BEDSIDE WITH LOTS OF QUESTIONS REGARDING POC. DR STRICKLAND INFORMED AND AGREEABLE TO MAKE CONTACT WITH PT'S DAUGHTER THIS EVENING. PT DENIES QUESTIONS OR CONCERNS REGARDING POC. TOLERATING POC. NO DISTRESS NOTED.
[2020-01-20 20:50] VITALS: BP 149/41
[2020-01-20 23:56] VITALS: BP 149/41
[2020-01-21 03:50] VITALS: BP 154/58
--- NOTE | 2020-01-21 04:44 | NUR ---
ASSUMED CARE OF PATIENT AT 1900. PATIENT RESTED WELL T/O NIGHT. ASSESSMENTS UNREMARKABLE. WILL CONTINUE TO MONITOR.
[2020-01-21 07:45] VITALS: BP 181/66
[2020-01-21 09:12] LABS: ABSOLUTE NEUTROPHILS 7.1 thou/uL (1.4-8.2); BASOPHILS 0.8 % (0.0-2.0); EOSINOPHILS 6.4 % (0.0-3.0); HEMATOCRIT 39.9 % (37.0-47.0); HEMOGLOBIN 13.4 gm/dL (12.0-15.0); LYMPHOCYTES 6.1 % (24.0-44.0); MCH 34.2 pg (26.0-34.0); MCHC 33.7 g/dL (28.0-37.0); MCV 101.7 fL (80.0-100.0); MONOCYTES 7.1 % (1.0-8.0); PLATELET COUNT 236 thou/uL (150-400); POLYS 79.6 % (36.0-66.0); RBC 3.92 mil/uL (4.20-5.00); RDW 15.3 % (10.5-14.5); WBC 8.9 thou/uL (4.0-11.0)
[2020-01-21 09:19] LABS: CALCIUM 10.9 mg/dL (8.5-10.1); CREATININE 1.7 mg/dL (0.6-1.0); POTASSIUM 3.3 mmol/L (3.5-5.1)
[2020-01-21 16:30] VITALS: BP 161/63
--- NOTE | 2020-01-21 16:40 | NUR ---
SLEEP INTERRUPTED. ADULT DTR VISITS. CA++ TRENDING BETTER. A-PACED PER TELE. ASSISTED TO BR FOR BM. DR. TAFOYA CONSULTED. WILL CONTINUE TO FOLLOW CLOSELY.
[2020-01-21 19:50] VITALS: BP 163/53
[2020-01-22 04:30] VITALS: BP 167/47
--- NOTE | 2020-01-22 06:38 | NUR ---
ASSUMED CARE OF PATIENT AT 1900. PATIENT RESTED WELL THROUGH OUT NOC. AT EARLY AM MED ADMINISTRATION PATIENT STARTED COUGHING WHILE DRINKING WATER. PATIENT HAD DIFFICULTY CATCHING BREATH SO INCREASED OXYGEN TO 2L. PATIENT SOUNDS COARSE AFTER. WILL CONTINUE TO MONITOR.
[2020-01-22 07:36] VITALS: BP 157/62
[2020-01-22 10:16] LABS: CALCIUM 10.4 mg/dL (8.5-10.1); CREATININE 1.4 mg/dL (0.6-1.0); POTASSIUM 3.5 mmol/L (3.5-5.1)
[2020-01-22 11:23] VITALS: BP 173/69
[2020-01-22 14:23] VITALS: BP 160/67
[2020-01-22 16:15] VITALS: BP 173/63
--- NOTE | 2020-01-22 17:54 | NUR ---
MOSTLY ALERT BUT OFTEN CONVERSATION DRIFTS. SOA WITH ACTIVITY. CA++ STILL TRENDING DOWN. ADULT DTR AT BEDSIDE. ASSISTED TO BR AND BSC WITH TWO. A-PACED PER TELE. FALL PRECAUTIONS IN PLACE; WILL CONTINUE TO FOLLOW CLOSELY.
[2020-01-22 20:03] VITALS: BP 193/68
[2020-01-23] VITALS (38 sets, daily range): BP systolic 70–197; BP diastolic 38–167
--- NOTE | 2020-01-23 05:16 | NUR ---
ASSESSMENT DOCUMENTED.PT RESTING IN THE CHAIR AT THIS TIME.A/OX3 WITH FORGETFULNESS.ON O2 AT 4LITERS NC,PT HAVING INTERMITTENT WHEEZING,REQUIRING NEB TX,LUNGS SOUNDS COARSE WITH CRACKLES.HYDRALAZINE PRN WAS GIVEN D/T HYPERTENSION,NEWSAGENT RESUMED HOME MED,C/O BACK PAIN THAT WAS CONTROLLED WITH TYLENOL AND WARM BLANKET.VOIDS VIA BSC.PT DENIES ANY OTHER DISTRESS.WILL CONT TO MONITOR PER POC.
[2020-01-23 05:28] LABS: HEMATOCRIT 39.4 % (37.0-47.0); HEMOGLOBIN 12.8 gm/dL (12.0-15.0); MCH 33.6 pg (26.0-34.0); MCHC 32.6 g/dL (28.0-37.0); MCV 103.1 fL (80.0-100.0); RBC 3.82 mil/uL (4.20-5.00); RDW 15.4 % (10.5-14.5)
[2020-01-23 05:34] LABS: CALCIUM 10.5 mg/dL (8.5-10.1); CREATININE 1.4 mg/dL (0.6-1.0); POTASSIUM 3.3 mmol/L (3.5-5.1)
--- NOTE | 2020-01-23 07:53 | NUR ---
PT C/O RESP DIFFICULTIES.ON O2 AT 4LITERS PNC,O2 SAT 88%.PT NOTED TO BE USING ACCESSORY MUSCLES TO BREATH,O2 INCREASED TO 8LITERS PNC AND RT NOTIFIED TO GIVE NEB TX.DR TAFOYA NOTIFIED,N/OS GIVEN FRO ABGS ALONG WITH CHEST XRAY AND OTHER LABS,SEE POS.PT RESTING IN BED AT THIS TIME,DAY RN TO CONT TO F/U.WILL CONT TO MONITOR.
[2020-01-23 08:25] LABS: BE(vivo) -4.2 mmol/L (-2 to +3); HCO3 20.7 mmol/L (22.0-26.0); PCO2 37.8 mmHg (35.0-45.0); pH 7.357 (7.360-7.450); sO2 85.6 % (92.0-98.0)
--- NOTE | 2020-01-23 09:23 | HC ---
[facility] [address] CONSULTATION Name: JORGE GUZMÁN Room #: 212-P ADM IN M.R.#: [id number] Admission: 01/19/20 Attend Phys: Bahman Beck MD Discharge: Date of : 37 Report #: [id number] THIS REPORT FOR: cc: Curtis Falk MD, Christopher B. MD Al-Mubaslat, Ahmad MD ~ CC: Curtis Beck DATE OF SERVICE: 01/20/2020 ENDOCRINE CONSULTATION NOTE CONSULTING PHYSICIAN: Dr. Beck. REASON FOR CONSULTATION: Hypercalcemia. HISTORY OF PRESENT ILLNESS: This is an 84-year-old female patient whose medical background is significant for the multiple medical issues including hypertension, hyperlipidemia, peripheral arterial disease, history of pulmonary embolism, hypothyroidism, atrial fibrillation as well as history of breast cancer and colon cancer. The patient presented to the ER yesterday with complaints of progressive weakness, dizziness apparent altered mental status and on arrival was found to have calcium of 12.7 mg/dL as well as renal insufficiency with a serum creatinine of 1.9. It was determined at that point in time to admit her for further care and monitoring. The patient does not recall having been found in the past to have calcium balance issues; although she mentioned that her potassium had been hard to maintain adequate levels. She recalls having had one episode of kidney stones over 40 years ago. She has not had significant body weight changes lately, but does report that she had appreciated some degree of mental fogginess, forgetfulness, and poor focus. She describes diffuse musculoskeletal aches and pains involving the joints and muscle groups throughout her body. She has not had fractures, but is not sure whether or not she had been diagnosed with osteoporosis in the past. She does not have significant issues with nausea and vomiting, but has intermittent difficulties with abdominal discomfort. The patient's history is noted for breast cancer over 16 years ago, as well as colon cancer, status post colectomy in February 2019. She acknowledged that she has not followed up as planned for her Oncology issues. The patient denied taking any routine form of calcium supplements. REVIEW OF SYSTEMS: CONSTITUTIONAL: Fatigue, tiredness, weakness, but not fever or chills or body weight changes. [address] [address] CONSULTATION Name: JORGE GUZMÁN Room #: 212-P [facility] IN M.R.#: [id number] Admission: 01/19/20 Attend Phys: Bahman Beck MD Discharge: Date of : 37 Report #: [id number] HEENT: Negative for sore throat, sinus pain or ear drainage. PULMONARY: Occasional shortness of breath with no cough or hemoptysis. CARDIAC: Intermittent palpitations, but no chest pain. She has occasional issues with lower extremity edema. GASTROINTESTINAL: Abdominal discomfort. No major issues with nausea, vomiting. NEUROLOGY: Negative for loss of consciousness, headaches or seizure activity, but she has occasional numbness and tingling peripherally. PSYCHIATRIC: Forgetfulness, poor focus, altered level of consciousness as noted in HPI. Otherwise, review of system is noncontributory other than those mentioned in HPI. PAST MEDICAL HISTORY: 1. Hypertension. 2. Hyperlipidemia. 3. Atrial fibrillation. 4. Anemia. 5. History of breast cancer in 2008. 6. Hypothyroidism. 7. Osteoarthritis. 8. Colon cancer, status post colectomy in February 2019. 9. History of deep venous thrombosis and pulmonary embolism. 10. Peripheral arterial disease, status post placement of stent in her right lower extremity. 11. Atrial fibrillation, status post pacemaker placement in 2019. 12. GERD. PAST SURGICAL HISTORY: Ankle surgery 2014; lumpectomy, left breast 2008; cataract surgery, bilateral cholecystectomy in 1994, hysterectomy in 1993, jaw surgery in 1999, total knee replacement, right sided 2005, colectomy February 2019. OUTPATIENT MEDICATIONS: Hydrochlorothiazide 25 mg daily, irbesartan 300 mg daily, omeprazole 20 mg daily, probiotic supplements by daily, amiodarone 200 mg p.o. b.i.d., ferrous sulfate 160 mg b.i.d., Eliquis 5 mg b.i.d., folic acid 1 mg daily, potassium chloride 300, Klor-Con 10 ER b.i.d., multivitamin daily, aspirin 81 mg daily, vitamin D 5000 units daily, levothyroxine 100 mcg daily, simvastatin 20 mg daily. ALLERGIES: No known drug allergies. FAMILY HISTORY: Noncontributory. SOCIAL HISTORY: The patient denies use of tobacco, alcohol or illicit drugs. PHYSICAL EXAMINATION: GENERAL: female patient who is not in apparent pain or distress. [address] [address] CONSULTATION Name: JORGE GUZMÁN Room #: 212-P [facility] IN [facility].#: [id number] Admission: 01/19/20 Attend Phys: Bahman Beck MD Discharge: Date of : 37 Report #: [id number] VITAL SIGNS: Blood pressure is 160/72 mmHg, heart rate is 60 beats per minute, respirations 19 per minute, temperature 36.5 degrees Celsius. CONSTITUTIONAL: The patient was lying supine in bed, appears somewhat lethargic, but not in apparent distress. HEENT: Anicteric sclerae. Intact extraocular motions. NECK: Supple, without JVD, no thyromegaly. CHEST: Noted for moderate air entry bilaterally with scattered rales. No wheeze or crackles. HEART: Regular rate and rhythm without murmurs or gallops. ABDOMEN: Soft, lax. No guarding. Slight discomfort to deep palpation. No organomegaly. Active bowel sounds. EXTREMITIES: Lower extremity exam is noted for trace ankle edema, skin breaks or ulcerations. NEUROLOGIC: Awake, lethargic, was having difficulties recalling information and forming sentences, largely nonfocal exam. PSYCHIATRY: Flat mood and affect. Slow thought process, difficulty recollecting information and forming sentences. LABORATORY RESULTS: Sodium 140, potassium 2.9, chloride 105, CO2 of 30, anion gap 5, BUN 23, creatinine 1.8, glucose 75, AST 124, total bilirubin 1.0. Calcium on arrival yesterday was 12.7 mg/dL, it is down to 11.4 mg/dL this morning. Phosphorus 2.6, magnesium 1.8, alkaline phosphatase 80, ALT 185, total protein 6.4, albumin 2.4, EGFR 27, lactic acid 1.0. CPK 36, troponin is negative. INR 1.2. White blood count 9.4, hemoglobin 13, hematocrit 39 and platelets 236. Intact PTH is ordered and is pending. Ionized calcium is pending. PTHrP is pending. ASSESSMENT AND PLAN: 1. Hypercalcemia. This is certainly a serious health issue and the patient presented under conditions of severe hypercalcemia, which would certainly result in emergent difficulties pertaining to renal insufficiency and heart failure. The patient seems to have responded well to the initial management with aggressive IV fluid provision as her calcium declined significantly. The menendez task at this point in time would be to identify the etiology behind this outlook. Statistically, hyperparathyroidism would be the most common cause and a PTH is currently pending, which would help rule in or rule out this entity. Also, the patient's history of malignancy including that of distant breast cancer and more recent colon cancer would certainly bring up hypercalcemia of malignancy as a potential cause as well. In addition to the ordered PTH, PTHrP, and ionized calcium I would like to add a vitamin D level to further help identify the causative etiology. Since the patient has responded well to the initial administration of IV fluids, I would like to continue with the same. Once her etiologies identified and a definitive management plan is put in place, we will then be able to determine [address] [address] CONSULTATION Name: JORGE UGZMÁN Room #: 212-P [facility] IN M.R.#: [id number] Admission: 01/19/20 Attend Phys: Bahman Beck MD Discharge: Date of : 37 Report #: [id number] the usefulness and whether or not it would be suitable to use Zometa and/or calcitonin to help the patient maintain the resolution of hypercalcemia. Until then, she is to continue with current hydration management as well as close calcium monitoring. 2. Hypothyroidism. The patient is known to have hypothyroidism and is maintained on levothyroxine 100 mcg daily. I will obtain TSH and free T4 levels to assess the adequacy of this dosage. 3. Hypertension. The patient is known to have hypertension and has her blood pressure control under adequate measures, this is to continue. 4. Hyperlipidemia. The patient is known to have hyperlipidemia and is maintained on atorvastatin therapy with good tolerability, she is to continue with the same. I certainly appreciate this consultation by Dr. Beck. <ELECTRONICALLY SIGNED> By: Tracey Villanueva MD 01/23/20 0923 1216 1801 Tracey Villanueva MD /nt
[2020-01-23 11:50] LABS: BE(vivo) -12.2 mmol/L (-2 to +3); HCO3 16.7 mmol/L (22.0-26.0); PCO2 50.1 mmHg (35.0-45.0); PO2 57.3 mmHg (80.0-100.0); sO2 80.7 % (92.0-98.0)
[2020-01-23 11:51] LABS: pH 7.142 (7.360-7.450)
--- NOTE | 2020-01-23 12:00 | NUR ---
I have reviewed the documentation by Berenice Pope from 01/20/20 to 01/20/20 and I concur with it. Domonique Rhodes
[2020-01-23 12:04] LABS: HEMATOCRIT 41.7 % (37.0-47.0); HEMOGLOBIN 13.3 gm/dL (12.0-15.0); MCH 33.4 pg (26.0-34.0); MCHC 31.9 g/dL (28.0-37.0); MCV 104.6 fL (80.0-100.0); RBC 3.98 mil/uL (4.20-5.00); RDW 16.3 % (10.5-14.5); WBC 25.3 thou/uL (4.0-11.0)
[2020-01-23 12:20] LABS: CALCIUM 10.3 mg/dL (8.5-10.1); CREATININE 1.6 mg/dL (0.6-1.0); POTASSIUM 3.8 mmol/L (3.5-5.1)
--- NOTE | 2020-01-23 12:40 | NUR ---
PT PLACED ON HOLD FROM P.T. THIS DATE DUE TO DECLINE IN PULMONARY STATUS WITH TX TO ICU. REQUEST NEW P.T. ORDERS WHEN APPROPRIATE.
--- NOTE | 2020-01-23 12:59 | NUR ---
PT CARE ASSUMED AT 0700. ASSESSMENT CHARTED. MEDICATION CHARTED. PT UP TO BSC WITH ONE ASSIST . O2 NC AT 9LPM; AT 0900. RAPID RESPONSE AT 1130. SpO2 78%; PT COOL CLAMMY AND CONFUSED; UNABLE TO STAND TO TRANSFER TO BSC. BIPAP AT 1145. TRANSFER TO 246 - ICU.
--- NOTE | 2020-01-23 14:28 | EKG ---
[facility] [place] [address] ELECTROCARDIOGRAM REPORT Name: JORGE GUZMÁN Room #: 246-P ADM IN M.R.#: [id number] Admission: 01/19/20 Attend Phys: Bahman Beck MD Discharge: Date of : 37 Report #: [id number] THIS REPORT FOR: cc: Curtis Falk MD, Christopher B. MD Couchonnal, Luis F. 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 : 1935 Requested By: Bahman Beck Order Number: [id number] MD: Daniel Cannon Measurements Intervals [place] Rate: 90 P: [place]: QRS: 66 QRSD: 204 T: -7 QT: 461 QTc: 564 Interpretive Statements Atrial fibrillation Right bundle branch block Compared to ECG 01/19/2020 11:17:50 Right bundle-branch block now present Atrial-paced complex(es) or rhythm no longer present Ventricular-paced complex(es) or rhythm no longer present Intraventricular conduction delay no longer present Electronically Signed On 01-23-2020 14:28:10 CDT by Daniel Cannon [email or web address] <ELECTRONICALLY SIGNED> By: Daniel Cannon MD 01/23/20 1428 1138 1138 Daniel Cannon MD /EPI
--- NOTE | 2020-01-23 15:19 | NUR ---
pt was on ccu today and transferred over to icu rt changes in resp and increased needs for oxygen. chart review. pt daughter brought her in. pt daughter is elma gutierrez. pt lives at home with 2 steps from front door and 2 steps into kitchen. doesnt have to use basement stairs. lives home with spouse. had wt loss in past months. cooks. independent when feeling ok. no longer drives. manage own medication. cm visited with pt daughter brenda via phone call " thank you, they have wheel chair and is independent. no home oxygen and i am thinking she is going to need that because she is on 100% o2 now"/brenda. will cont following as needed for dc needs.
--- NOTE | 2020-01-23 17:04 | NUR ---
VASCULAR ACCESS CONSULTED FOR PICC LINE. PT'S LABS,MEDS,HX ,ORDER AND CONSENT VERIFIED. RIJ NONCOMPRESSABLE, UNABLE TO GO LEFT SIDE DUE TO PACEMEKER. SPOKE TO DR TAFOYA. PE HX OVER 10 YRS AGO R LUMPECTOMY 20 YRS AGO. 5 FR TL PICC TRIMMED TO 40CM INSERTED IN ELIAS BASILIC WITH MINDRAY US. CXR SHOWS WENT UP RIJ. POWER FLUSHED REPOSITIONED LINE 2ND CXR ORDERED.
[2020-01-24] VITALS (96 sets, daily range): BP systolic 40–174; BP diastolic 13–93
[2020-01-24 03:37] LABS: CREATININE 1.6 mg/dL (0.6-1.0); POTASSIUM 4.4 mmol/L (3.5-5.1)
[2020-01-24 03:38] LABS: HEMATOCRIT 38.4 % (37.0-47.0); HEMOGLOBIN 12.4 gm/dL (12.0-15.0); MCH 33.7 pg (26.0-34.0); MCHC 32.3 g/dL (28.0-37.0); MCV 104.4 fL (80.0-100.0); RBC 3.68 mil/uL (4.20-5.00); RDW 16.3 % (10.5-14.5); WBC 23.3 thou/uL (4.0-11.0)
[2020-01-24 04:03] LABS: BE(vivo) -6.7 mmol/L (-2 to +3); HCO3 18.5 mmol/L (22.0-26.0); PCO2 36.2 mmHg (35.0-45.0); PO2 86.8 mmHg (80.0-100.0); pH 7.327 (7.360-7.450)
--- NOTE | 2020-01-24 08:09 | NUR ---
Received report from offgoing RN and assumed patient care. Patient on BiPaP at 100% oxygen. Patient kept trying to remove the mask and restraints were placed to keep from removing device. Patient answered her name and place at the midnight assessment but would not say anything at the 2000 assessment. Shortly after 0300, patient pulled the hose out from the BiPaP and went into cardiac arrest. Code was immediately called. Patient received compressions and 3 rounds of epi before regaining ROSC. Patient would not follow commands after arresting but had purposeful movements. Hypothermia protocol was ordered by DIRECTOR FOOD AND BEVERAGE (Elenita Hightower) but due to delay in getting the artic sun it was not started and cardiology cancelled the order for TTM. Patient's daughter was updated shortly after patient regained ROSC.
[2020-01-24 08:10] LABS: D-DIMER 16.24 ug/mLFEU (0.19-0.50)
--- NOTE | 2020-01-24 08:21 | NUR ---
THE PATIENT HAD A CHANGE IN MEDICAL STATUS, WAS MOVED TO ICU AND NOW ON BIPAP. ST WILL HOLD THERAPY UNTIL STATUS IMPROVES.
--- NOTE | 2020-01-24 08:37 | EKG ---
[facility] [place] [address] ELECTROCARDIOGRAM REPORT Name: JORGE GUZMÁN Room #: 248-P ADM IN M.R.#: [id number] Admission: 01/19/20 Attend Phys: Bahman Beck MD Discharge: Date of : 37 Report #: [id number] THIS REPORT FOR: cc: Curtis Falk MD, Christopher B. 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 : 1935 Requested By: Nitza Lowe Order Number: [id number] MD: Rick Wheat Measurements Intervals [place] Rate: 65 P: 88 [place]: 192 QRS: 58 QRSD: 103 T: 45 QT: 512 QTc: 533 Interpretive Statements Sinus rhythm Borderline T wave abnormalities Prolonged QT interval Compared to ECG 01/23/2020 11:38:34 Prolonged QT interval now present Atrial fibrillation no longer present Right bundle-branch block no longer present Electronically Signed On 01-24-2020 8:37:19 CDT by Rick Wheat [email or web address] <ELECTRONICALLY SIGNED> By: Rick Wheat MD, [facility] 01/24/2037 5 5 Rick Wheat MD, [facility] /EPI
--- NOTE | 2020-01-24 09:38 | 2DMMODE ---
[facility] [place] [address] 2 D/M-MODE ECHOCARDIOGRAM Name: JORGE GUZMÁN Room #: 248-P ADM IN M.R.#: [id number] Admission: 01/19/20 Attend Phys: Bahman Beck MD Discharge: Date of : 37 Report #: [id number] THIS REPORT FOR: cc: Curtis Falk MD, Christopher B. MD Lammoglia, Francisco J. MD ~ APPROVED REPORT Study performed: 01/24/2020 08:43:27 EXAM: Comprehensive 2D, Doppler, and color-flow Echocardiogram Patient Location: ICU Room #: 248 Status: routine BSA: 1.95 HR: 96 bpm BP: 166/49 mmHg Rhythm: NSR Other Information Study Quality: Adequate Technically limited study due to patient on vent. Indications Status post arrest. Hx: Pacemaker. 2D Dimensions RVDd: 36.38 mm IVSd: 10.40 (7-11mm) LVOT Diam: 20.43 (18-24mm) LVDd: 43.44 mm PWd: 10.22 (7-11mm) LVDs: 30.83 (25-40mm) Aortic Root: 31.59 mm Volumes Left Atrial Volume (Systole) Single Plane 4CH: 56.20 mL Single Plane 2CH: 37.65 mL LA ESV Index: 28.00 mL/m2 Aortic Valve AoV Peak Jeremias.: 2.72 m/s AO Peak Gr.: 29.59 mmHg LVOT Max P.09 mmHg [facility] [address] [place] [address] 2 D/M-MODE ECHOCARDIOGRAM Name: JORGE GUZMÁN Room #: 248P [facility] IN [facility].#: [id number] Admission: 01/19/20 Attend Phys: Bahman Beck MD Discharge: Date of : 37 Report #: [id number] Mean Gr.: 17.19 mmHg AO V2 Mean: 1.98 m/s LVOT Max V: 1.33 m/s AO V2 VTI: 44.36 cm LIBIA Vmax: 1.60 cm2 Mitral Valve E/A Ratio: 1.5 MV Decel. Time: 151.61 ms MV E Max Jeremias.: 0.84 m/s MV A Jeremias.: 0.57 m/s MV PHT: 43.97 ms IVRT: 36.91 ms Pulmonary Valve PV Peak Jeremias.: 1.29 m/s PV Peak Gr.: 6.68 mmHg Tricuspid Valve RAP Estimate: 5.00 mmHg Left Ventricle The left ventricle is normal size. There is normal LV segmental wall motion. There is normal left ventricular wall thickness. Left ventricular systolic function is normal. LVEF is 55-60%. Right Ventricle The right ventricle is normal size. Atria The left atrium size is normal. The right atrium size is normal. Pacemaker lead is present in the right atrium. Aortic Valve Aortic valve is moderately calcified. Trace aortic regurgitation. There is mild valvular aortic stenosis. Calculated aortic valve area is 1.6 cm2 with maximum pressure gradient of 30 mmHg and mean pressure gradient of 17 mmHg. Mitral Valve The mitral valve is normal in structure. Trace mitral regurgitation. Tricuspid Valve The tricuspid valve is normal in structure. Unable to assess PA pressure. There is no tricuspid valve regurgitation noted. Pulmonic Valve [facility] [address] [place] [address] 2 D/M-MODE ECHOCARDIOGRAM Name: JORGE GUZMÁN Room #: [address] [place] [address] IN .R.#: [id number] Admission: 01/19/20 Attend Phys: Bahman Beck MD Discharge: Date of : 37 Report #: [id number] Pulmonic valve is not well visualized. Trace pulmonic regurgitation. Great Vessels The aortic root is normal in size. Ascending aorta is not well visualized. IVC is normal in size and collapses >50% with inspiration. Pericardium There is no pericardial effusion. <Conclusion> The left ventricle is normal size. LVEF is 55-60%. The right atrium size is normal. Pacemaker lead is present in the right atrium. Aortic valve is moderately calcified. Trace aortic regurgitation. There is mild valvular aortic stenosis. Calculated aortic valve area is 1.6 cm2 with maximum pressure gradient of 30 mmHg and mean pressure gradient of 17 mmHg. The mitral valve is normal in structure. Trace mitral regurgitation. The tricuspid valve is normal in structure. Pulmonic valve is not well visualized. Trace pulmonic regurgitation. There is no pericardial effusion. <ELECTRONICALLY SIGNED> By: Canelo Mota MD 01/24/20937 7 7 Canelo Mota MD /INF
--- NOTE | 2020-01-24 14:12 | NUR ---
CHART REVIEW. PT REMAINS SEDATED AND INTUBATED. CM FOLLOWING REGARDING DC NEEDS.
--- NOTE | 2020-01-24 14:30 | NUR ---
PT CAME DISCONNECTED FROM VENT BRIEFLY AND DESATED TO 50% VERY QUICKLY. BAGGED WITH 100% [address] TAFOYA AND DR MCLAUGHLIN NOTIFIED. WILL NOTIFY CARDIOLGY PER DR. MCLAUGHLIN ORDERS IN AM.
--- NOTE | 2020-01-24 16:30 | NUR ---
TURNED PT FOR BATH. DESAT 62% QUICKLY FINISHED CARES, BAGGED WITH 100% 02 FOR ABOUT 5 MINUTES. TITRATING LEVOPHED FOR MAP 65. VERY LIGHTLY SEDATED ON DIPRIVAN.
[2020-01-25] VITALS (92 sets, daily range): BP systolic 70–157; BP diastolic 29–91
[2020-01-25 01:42] LABS: ABSOLUTE NEUTROPHILS 14.7 thou/uL (1.4-8.2); BASOPHILS 0.1 % (0.0-2.0); HEMATOCRIT 36.4 % (37.0-47.0); HEMOGLOBIN 12.2 gm/dL (12.0-15.0); LYMPHOCYTES 1.6 % (24.0-44.0); MCH 33.7 pg (26.0-34.0); MCHC 33.5 g/dL (28.0-37.0); MCV 100.3 fL (80.0-100.0); MONOCYTES 2.3 % (1.0-8.0); PLATELET COUNT 237 thou/uL (150-400); RBC 3.63 mil/uL (4.20-5.00); RDW 15.3 % (10.5-14.5); WBC 15.4 thou/uL (4.0-11.0)
[2020-01-25 01:47] LABS: APTT 38.3 Seconds (24.5-32.8); INR 1.5
[2020-01-25 01:53] LABS: CALCIUM 9.5 mg/dL (8.5-10.1); CREATININE 1.7 mg/dL (0.6-1.0); MAGNESIUM 1.4 mg/dL (1.8-2.4); PHOSPHORUS 2.6 mg/dL (2.5-4.9); TROPONIN-I 0.46 ng/mL (<0.06)
[2020-01-25 01:55] LABS: POTASSIUM 2.6 mmol/L (3.5-5.1)
[2020-01-25 03:37] LABS: BE(vivo) 2.9 mmol/L (-2 to +3); HCO3 25.1 mmol/L (22.0-26.0); PCO2 31.1 mmHg (35.0-45.0); PO2 66.8 mmHg (80.0-100.0); pH 7.524 (7.360-7.450); sO2 95.2 % (92.0-98.0)
--- NOTE | 2020-01-25 06:15 | NUR ---
NO SEDATION VACATION COMPLETED THIS SHIFT DUE TO FIO2 70%. SR WITH INTERMITTENT PACING SPIKES & BBB. INTERMITTENT RUNS OF AFIB. MAINTAINED BPs WITH MAP >65 WHILE ON LEVO GTT. CORTÉS IN PLACE; ADEQUATE OUTPUT. CRITICAL POTASSIUM LEVEL OF 2.6 WITH AM LABS. REPLACED PER PROTOCOL. MAG LEVEL LOW; REPLACED PER PROTOCOL. PATIENT RESPONDS BY BITING DOWN ON ETT AND GRIMACING DURING ORAL CARE. MOVED ETT POSITION TO LEFT OF MOUTH. SORE AREA PRESENT ON LOWER LIP; APPLIED MOUTH MOISTURIZER.
--- NOTE | 2020-01-25 07:30 | NUR ---
Assummed care from Ankita BASURTO. Potassium bolus infusing for serum Potassium of 2.6. Monitor A Paced. On Propofol and Levophed drips. Remains intubated with O2 sat in the mid 90's.
--- NOTE | 2020-01-25 09:00 | NUR ---
Patient placed on enhanced precautions, pending results of COVID test, after CT results of chest reviewed by cardiology.
--- NOTE | 2020-01-25 10:31 | NUR ---
Nutrition: Consider initiation of early enteral nutrition, pt on vent day 2. Vital HP to reach 50 mL/hr with current propofol needs will meet 92-100% of needs.
[2020-01-25 11:41] LABS: ABSOLUTE NEUTROPHILS 12.8 thou/uL (1.4-8.2); BASOPHILS 0.2 % (0.0-2.0); HEMATOCRIT 35.4 % (37.0-47.0); HEMOGLOBIN 12.1 gm/dL (12.0-15.0); MCH 34.2 pg (26.0-34.0); MCHC 34.1 g/dL (28.0-37.0); MCV 100.1 fL (80.0-100.0); PLATELET COUNT 221 thou/uL (150-400); POLYS 94.8 % (36.0-66.0); RBC 3.53 mil/uL (4.20-5.00); RDW 15.3 % (10.5-14.5); WBC 13.5 thou/uL (4.0-11.0)
[2020-01-25 12:02] LABS: APTT 36.4 Seconds (24.5-32.8); INR 1.4; PROTIME 14.6 Seconds (9.3-11.4)
[2020-01-25 12:09] LABS: CREATININE 1.7 mg/dL (0.6-1.0); PHOSPHORUS 2.8 mg/dL (2.5-4.9); TROPONIN-I 0.17 ng/mL (<0.06)
[2020-01-25 12:12] LABS: POTASSIUM 2.9 mmol/L (3.5-5.1)
--- NOTE | 2020-01-25 13:00 | NUR ---
Call placed at [address] Beck for critical serum potassium of 2.9, Potassium protocol followed. Called again at 1200 and ELECTRICIAN SUBSTATION SUPERVISOR responded at jasmin 1230, no additional orders. Levophed and Propofol tappered.
[2020-01-25 14:07] LABS: GLOBULIN TOTAL 3.6 g/dL (2.2-3.9); M-SPIKE Not Observed g/dL (Not Observed)
--- NOTE | 2020-01-25 14:39 | NUR ---
CALL PLACED TO JOANNE TEAGUE PATIENT HAD A NEGAIVE COVID TEST. DR STRICKLAND ALSO NOTIFIED.
--- NOTE | 2020-01-25 16:30 | NUR ---
COVID repeat test was negative. Dr Beck and Nury Romero RN notified and enhanced Isolation dc'd per order. Patient's daughter Renee notified and updated on her mother's condition.
--- NOTE | 2020-01-25 18:21 | NUR ---
Patient is progressing slowly towards outcome goals. Serum potassium upto 3.1 following protocol and additional potassium infusing. Monitor A Fib with intermittent paced beats. Levophed weaned to 2 mcg/min to keep MAP greater than 65 mmhg. Propofol weaned to 40 mcg. Opens eyes and coughs when suctioned. O2 sat in the mid 90's. Vital HP tube feeding initiated this evening per order at 20 ml/hr with goal of 50 ml/hr. Espinoza patent with greater than 50 ml/hr. Will continue to monitor.
--- NOTE | 2020-01-25 19:57 | HC ---
[facility] [place] [address] CONSULTATION Name: JORGE GUZMÁN Room #: [facility] ADM IN M.R.#: [id number] Admission: 01/19/20 Attend Phys: Bahman Beck MD Discharge: Date of : 39 Report #: [id number] THIS REPORT FOR: cc: Curtis Falk MD,Kavin Singer MD, MD ~ CC: Curtis Beck DATE OF SERVICE: 01/24/2020 HISTORY OF PRESENT ILLNESS: This is an 84-year-old female patient who is unable to provide any history at all. I talked to the nurses looking after this patient and it looks like the patient was on BiPAP and she pulled the BiPAP out and then had a cardiopulmonary arrest. She is on sedation, but according to the nurses, she was waking up before that and presently she is unresponsive, although she opens her eyes. She did not follow any commands for me. Neurology consultation is being requested to evaluate the patient for hypoxic encephalopathy. REVIEW OF SYSTEMS: Pretty extensive in this patient. I reviewed the ER records and it looks like she came with speech difficulty when she came. She has a history of hypertension, hyperlipidemia, peripheral artery disease, PE, breast cancer, hypothyroidism, atrial fibrillation. When she was brought here, she also had speech difficulty. Review of systems is positive for sick sinus syndrome, peripheral artery disease, pleural effusion, question of pneumonia. PAST MEDICAL HISTORY: Positive for what looks like speech difficulty for which she came in. She does have a history of hypercalcemia also as per record. FAMILY HISTORY: Unavailable. SOCIAL HISTORY: From the record and does not look like there is a history of alcohol or tobacco abuse. PHYSICAL EXAMINATION: Pretty limited. She opens her eyes, but does not follow any commands. Cranial nerve examination was attempted. Her pupils look symmetrical, but that is all I can tell. I cannot tell about the moment. I cannot tell about the fundus. There is no meningeal sign. Blood pressure is 123/52, temperature is 99.6, pulse is 85. She is being followed by multiple consultants including Cardiology. That is basically all the examination, which is possible. LABORATORY DATA: Indicated white count of 23.3. Her estimated GFR is only 31. She did have a CT scan of the head on admission that was reviewed, which did not show any acute changes. [facility] [address] [place] [address] CONSULTATION Name: JORGE GUZMÁN Room #: 248-P ADM IN .R.#: [id number] Admission: 01/19/20 Attend Phys: Bahman Beck MD Discharge: Date of : 39 Report #: [id number] IMPRESSION: Cardiopulmonary arrest. Main thing is to prognosticate this patient and will take some time. We would like to do a CT scan of the head when the patient is stable. I asked the nurses to talk to Cardiology and Pulmonology and let me know when they think she is stable enough to go for CT and I will get an EEG done in the meantime. We will leave further recommendation once this workup is available. Thank you very much for this referral. <ELECTRONICALLY SIGNED> By: Kavin Johnson MD 01/25/201956 1420 16 Kavin Johnson MD /nt
--- NOTE | 2020-01-25 19:58 | EEG ---
[facility] [place] [address] ELECTROENCEPHALOGRAM Name: JORGE GUZMÁN Room #: 248-P [facility] IN M.R.#: [id number] Admission: 01/19/20 Attend Phys: Bahman Beck MD Discharge: Date of : 39 Report #: [id number] THIS REPORT FOR: //name// CC: Curtis Beck DATE OF SERVICE: 01/24/2020 This patient is being evaluated for hypoxic encephalopathy. This patient's EEG was done by placing the electrode by standard 10-20 system of electrode placement. Both referential and sequential montages were used for recording. Background activity in this patient's EEG is about 6 Hz and 20 microvolt. This is a symmetrical activity. The patient's photic stimulation was unremarkable. Throughout the record, no active epileptiform activity was noticed. IMPRESSION: This patient's EEG activity is suppressed, but well-defined cortical activity is present. No active epileptiform activity was noticed. Thank you very much for this referral. <ELECTRONICALLY SIGNED> By: Kavin Johnson MD 01/25/20 1958 1647 51 Kavin Johnson MD /nt
[2020-01-26] VITALS (90 sets, daily range): BP systolic 57–181; BP diastolic 14–122
[2020-01-26 03:58] LABS: HEMOGLOBIN 12.4 gm/dL (12.0-15.0); MCH 33.5 pg (26.0-34.0); MCHC 33.5 g/dL (28.0-37.0); RBC 3.7 mil/uL (4.20-5.00); RDW 15.4 % (10.5-14.5); WBC 17.6 thou/uL (4.0-11.0)
[2020-01-26 04:10] LABS: CALCIUM 8.8 mg/dL (8.5-10.1); CREATININE 1.7 mg/dL (0.6-1.0); POTASSIUM 3.2 mmol/L (3.5-5.1)
--- NOTE | 2020-01-26 05:44 | NUR ---
Received report and assumed patient care. Patient remains on the ventilator and has Propofol infusing for sedation. Patient's FIO2 was titrated down from 70% to 50% during this shift. Patient has Levophed infusing for blood pressure support. Patient's SBP dropped to the 50's during this shift and Levophed was titrated up and she dropped to the 60's when this RN briefly stopped the Levophed to draw morning labs. Patient also noted to have minimal output this shift with urine output ranging 30 mL/hr. No other acute events occurred during this shift.
--- NOTE | 2020-01-26 18:14 | NUR ---
Nurse spoke to patients Daughter, Vannesa Iqbal, at 1030 and udpated her on her mothers care. Nurse spoke to Dr. Beck about concerns regarding transporting patient to CT, due to patients flucuating BP and status, we concurred with Dr Beck to postpone the CT until patient is more stable. Patients daughter was at bedside around 1300 today and was updated again on plan of care. Dr. Beck at this time also put in orders for a 500cc fluid bolus and albumin gtt. Patient is not following commands or unable to rouse. Patient still requiring heavy mechanical assistance and is therefore not progressing towards goals.
[2020-01-27] VITALS (88 sets, daily range): BP systolic 87–185; BP diastolic 28–61
[2020-01-27 04:31] LABS: BE(vivo) 1.2 mmol/L (-2 to +3); HCO3 24.3 mmol/L (22.0-26.0); PCO2 34.3 mmHg (35.0-45.0); PO2 82.9 mmHg (80.0-100.0); pH 7.469 (7.360-7.450); sO2 96.8 % (92.0-98.0)
[2020-01-27 05:29] LABS: BASOPHILS 0.2 % (0.0-2.0); HEMATOCRIT 32.6 % (37.0-47.0); LYMPHOCYTES 1.3 % (24.0-44.0); MCH 33.7 pg (26.0-34.0); MCHC 33.8 g/dL (28.0-37.0); MCV 99.8 fL (80.0-100.0); MONOCYTES 4.9 % (1.0-8.0); PLATELET COUNT 246 thou/uL (150-400); POLYS 93.6 % (36.0-66.0); RBC 3.26 mil/uL (4.20-5.00); RDW 15.7 % (10.5-14.5); WBC 18.2 thou/uL (4.0-11.0)
[2020-01-27 05:43] LABS: ALBUMIN 2.3 g/dL (3.4-5.0); CALCIUM 8.4 mg/dL (8.5-10.1); CREATININE 1.8 mg/dL (0.6-1.0); POTASSIUM 3.5 mmol/L (3.5-5.1); TOTAL BILIRUBIN 0.8 mg/dL (0.2-1.0); TOTAL PROTEIN 5.9 g/dL (6.4-8.2)
--- NOTE | 2020-01-27 06:00 | NUR ---
VSS. PATIENT'S MAP MAINTAINED BETWEEN 65-80. LEVO GTT TITRATED DOWN FROM 12 TO 6.9 THIS SHIFT. BOLUS FEEDINGS GIVEN. BLOOD GLUCOSE STABLE. PATIENT DID NOT TOLERATE TURNS. FIO2 DECREASED FROM 50 TO 40 THIS SHIFT.
[2020-01-27 07:29] LABS: BE(vivo) 2.5 mmol/L (-2 to +3); HCO3 26.3 mmol/L (22.0-26.0); PCO2 37.7 mmHg (35.0-45.0); PO2 61.1 mmHg (80.0-100.0); pH 7.461 (7.360-7.450); sO2 92.8 % (92.0-98.0)
--- NOTE | 2020-01-27 15:02 | NUR ---
chart review. pt remains on vent, tube feeding for nutritional needs. no anticipated dc over the weekend. will cont following as needed for dc needs.
--- NOTE | 2020-01-27 15:15 | NUR ---
PT HAS BEEN OFF LEVOPHED FOR A FEW HOURS NOW, TOOK HER TO CT. PT TOLERATED WELL. NO ISSUES.
--- NOTE | 2020-01-27 16:29 | NUR ---
Patients weened off Levophed and is maintaining adequate sats and pressures. Patients daughter remained at the bedside majority of the day. Daughter has been updated on patients status and her plan of care. Patient maintaining stability and was able to be transferred to CT. We are currently waiting on the results. Patient still requiring heavy mechanical ventilation but is progressing towards goals regarding hemodynamic stability.
--- NOTE | 2020-01-27 21:23 | NUR ---
NURSE TRANSFERRED CARE TO [facility] AT APPROXIMATELY 2100.
[2020-01-28] VITALS (24 sets, daily range): BP systolic 114–144; BP diastolic 38–48
[2020-01-28 05:05] LABS: HEMATOCRIT 30.3 % (37.0-47.0); HEMOGLOBIN 10.2 gm/dL (12.0-15.0); MCH 33.7 pg (26.0-34.0); MCHC 33.5 g/dL (28.0-37.0); MCV 100.6 fL (80.0-100.0); RBC 3.01 mil/uL (4.20-5.00); RDW 15.6 % (10.5-14.5); WBC 12.4 thou/uL (4.0-11.0)
[2020-01-28 05:19] LABS: CALCIUM 7.9 mg/dL (8.5-10.1); CREATININE 1.6 mg/dL (0.6-1.0); POTASSIUM 3.5 mmol/L (3.5-5.1)
--- NOTE | 2020-01-28 07:36 | NUR ---
Assumed patient care at 2100. Patient remains on ventilator and does not have any sedation. Patient does not follow any commands. VS remained stable during this shift and no acute events occurred. Patient is progressing towards goal as she is no longer needing Levophed for pressure support and able to have FIO2 titrated down.
[2020-01-28 15:44] LABS: ALBUMIN 2.1 g/dL (3.4-5.0); DIRECT BILIRUBIN 0.3 mg/dL (<0.1-0.2); TOTAL BILIRUBIN 0.6 mg/dL (0.2-1.0); TOTAL PROTEIN 5.1 g/dL (6.4-8.2)
--- NOTE | 2020-01-28 18:17 | NUR ---
PATIENT DOES NOT FOLLOW COMMANDS. NO SEDATION. INTUBATED. VENT SETTINGS REAMAIN 40% FIO2 PEEP 8 VT 450. SALINE LOCKED. VITAL SIGNS STABLE. ADEQUATE URINE OUTPUT. BMX2. PICC RIGHT UPPER ARM. FAMILY AT BEDSIDE TODAY. TUBE FEED GOAL RATE 50ML/HR.
[2020-01-29] VITALS (26 sets, daily range): BP systolic 91–158; BP diastolic 36–92
[2020-01-29 05:30] LABS: ABSOLUTE NEUTROPHILS 15.4 thou/uL (1.4-8.2); BASOPHILS 0.3 % (0.0-2.0); HEMATOCRIT 31.5 % (37.0-47.0); HEMOGLOBIN 10.5 gm/dL (12.0-15.0); MCH 33.5 pg (26.0-34.0); MCHC 33.2 g/dL (28.0-37.0); MCV 100.7 fL (80.0-100.0); MONOCYTES 3.8 % (1.0-8.0); PLATELET COUNT 208 thou/uL (150-400); POLYS 94.9 % (36.0-66.0); RBC 3.13 mil/uL (4.20-5.00); RDW 15.8 % (10.5-14.5); WBC 16.2 thou/uL (4.0-11.0)
[2020-01-29 05:46] LABS: INR 1.2; PROTIME 11.8 Seconds (9.3-11.4)
--- NOTE | 2020-01-29 06:51 | NUR ---
Patient remains on the ventilator and unresponsive to following commands. No acute events occurred during this shift and VS remained stable.
[2020-01-29 07:16] LABS: ALBUMIN 2.1 g/dL (3.4-5.0); CREATININE 1.6 mg/dL (0.6-1.0); MAGNESIUM 2.3 mg/dL (1.8-2.4); PHOSPHORUS 2.9 mg/dL (2.5-4.9); POTASSIUM 3.8 mmol/L (3.5-5.1); TOTAL BILIRUBIN 0.5 mg/dL (0.2-1.0)
--- NOTE | 2020-01-29 18:38 | NUR ---
NO RESPONSE TO VERBAL OR PAINFUL STIMULI. REMAINS ON VENT. 3 + GENERALIZED EDEMA. CORTÉS WITH CLEAR YELLOW URINE OUTPUT. DAUGHTER AT BEDSIDE AND STATES HER MOTHER WOULD NOT WANT TO BE KEPT ALIVE ON A MACHINE. SHE PLANS TO DISCUSS PLAN WITH SISTER AND FATHER. NO DECISION WILL BE MADE WITHOUT THEM BEING ABLE TO SEE HER, CAR CUSTOMIZER NOTIFIED OF FAMILIY WISHES.
[2020-01-30] VITALS (19 sets, daily range): BP systolic 111–169; BP diastolic 30–69
--- NOTE | 2020-01-30 05:06 | NUR ---
Patient remains on the ventilator without any sedation. Patient opens eyes to stimulus but does not track, follow commands, or move to pain stimulus. VS remained stable and and no acute events occurred during this shift. Patient is not progressing towards goal.
--- NOTE | 2020-01-30 10:11 | NUR ---
PT AND OTHER DAUGHTER ARE SUPPOSED TO BE COMING UP TO SEE PT BEFORE FAMILY DECIDES TO EXTUBATE PT. PT DAUGHTER THAT HAS BEEN COMING UP IS ALSO GOING TO FACETIME WITH SEVERAL OTHER MEMBERS OF THE FAMILY.
--- NOTE | 2020-01-30 11:32 | NUR ---
chart review. pt remains on vent with tube feed for nutritional support. cm notified by bedside nurse that pt daughter and pt here and possible want to palliative then dc home with hospice. education with nurse that hospice will need to be sent up 1st and equip delivered to home before we would be able to send her home. md to discuss with family. they do not have a hospice company picked yet. will cont following as needed for dc needs.
--- NOTE | 2020-01-30 11:53 | NUR ---
spoke with pt daughter, she wants mother to be taken home. she wants family to be able to come and visit her. spoke with dr kline, if hospice can be arranged today daughter wants that. spoke with case management, she will call daughter and discuss with her.
--- NOTE | 2020-01-30 12:23 | NUR ---
This client services analyst was able to meet the patient's and oldest daughter for the first time today. Liliya, the younger daughter was present. They are coming to realize the end of life might be close. We did life review and discused how th couple met and some of their lives together and also the daughters perspectives. They seem to be a family of nemesio. We discussed the considerations of end of life here on earth. We concluded in prayer.
--- NOTE | 2020-01-30 12:58 | NUR ---
spoke with hospice on speaker with daughter. they said they can have hospital bed and oxygen to the house in two hours and if they could have the pt discharged at five they could have the nurse there at six. they asked that our physician write orders for comfort meds and cm will fax them to [facility] pharmacy to fill. daughter asked that this rn also get an order for medications to give prior to extubation. cm will set up transport. paged dr kline for orders and rxs waiting on return call.
--- NOTE | 2020-01-30 13:23 | NUR ---
FAXED REFERRAL TO HOSPICE RECEIVED CONFIRMATION SPOKE WITH INTAKE AND THEY RECEIVED REFERRAL AND HAVE SPOKEN WITH PT'S FAMILY AND THEY WILL NEED TRANSPORT ARRANGED FOR 1700 BY AMBULANCE ([facility]). UNIT NOTIFIED AND SW (EMILEE) WILL NOTIFY PT'S FAMILY TIME OF TRANSPORT.
[2020-01-30] MEDS ORDERED: IPRAT-ALBUT 0.5-3 ML INH (13:58)
[2020-01-30] MEDS ORDERED: MSL20MG/ML SUBLING (14:48)
[2020-01-30] MEDS ORDERED: LORAZEPAM I2 MG/1 M2 SUBLING (14:48)
[2020-01-30] MEDS ORDERED: HALOPERIDOL2 MG/1 ML PO (14:50)
--- NOTE | 2020-01-30 17:01 | NUR ---
[facility] CALLED TO SAY THEY WERE ON THE WAY. CALLED RT, ADMINISTERED COMFORT MEDS. RT EXTUBATED AND PLACED ON 2L NC AT 1700
--- NOTE | 2020-01-30 17:11 | NUR ---
pt taken via em[facility] to home on [address]. original outside hospital dnr sent with ems. daughter took pt dentures home and had previously taken all the other belongings.
--- NOTE | 2020-01-30 17:12 | NUR ---
mak and fecal management system in place
== END 2020-01-30 17:13 | disposition hospice, home (50) | DRG 870 ==
LOC: ER 10:12 → 3W 14:32 → 2N 14:32 → EROBS 14:32 → 3W 20:03 → 2N 01-20 12:06 → ICU 01-23 11:57
PROVIDERS: Emergency Medicine; Internal Medicine; Nurse Practitioner Family; Pediatrics; ADMIT Hospitalist; ATTEND Hospitalist
PROC: 5A09357 Assistance with Respiratory Ventilation, Less than 24 Consecutive Hours, Continuous Positive Airway Pressure (ICD-10-PCS; principal; 2020-01-23)
PROC: 02HV33Z Insertion of Infusion Device into Superior Vena Cava, Percutaneous Approach (ICD-10-PCS; principal; 2020-01-23)
PROC: 4B02XSZ Measurement of Cardiac Pacemaker, External Approach (ICD-10-PCS; 2020-01-24)
PROC: 5A1955Z Respiratory Ventilation, Greater than 96 Consecutive Hours (ICD-10-PCS; 2020-01-24)
PROC: 0BH17EZ Insertion of Endotracheal Airway into Trachea, Via Natural or Artificial Opening (ICD-10-PCS; 2020-01-24)
DX: A41.9 Sepsis, unspecified organism (principal); J69.0 Pneumonitis due to inhalation of food and vomit; G93.41 Metabolic encephalopathy; J96.01 Acute respiratory failure with hypoxia; I46.9 Cardiac arrest, cause unspecified; I50.33 Acute on chronic diastolic (congestive) heart failure; J96.02 Acute respiratory failure with hypercapnia; I13.0 Hypertensive heart and chronic kidney disease with heart failure and stage 1 through stage 4 chronic kidney disease, or unspecified chronic kidney disease; E46 Unspecified protein-calorie malnutrition; I48.20 Chronic atrial fibrillation, unspecified; G93.1 Anoxic brain damage, not elsewhere classified; I82.612 Acute embolism and thrombosis of superficial veins of left upper extremity; J91.8 Pleural effusion in other conditions classified elsewhere; E83.52 Hypercalcemia; Z20.828 Contact with and (suspected) exposure to other viral communicable diseases; E78.00 Pure hypercholesterolemia, unspecified; E03.9 Hypothyroidism, unspecified; Z96.651 Presence of right artificial knee joint; E87.6 Hypokalemia; E78.5 Hyperlipidemia, unspecified; M19.90 Unspecified osteoarthritis, unspecified site; K21.9 Gastro-esophageal reflux disease without esophagitis; I49.5 Sick sinus syndrome; R63.4 Abnormal weight loss; G47.00 Insomnia, unspecified; Z77.22 Contact with and (suspected) exposure to environmental tobacco smoke (acute) (chronic); I48.0 Paroxysmal atrial fibrillation; E05.00 Thyrotoxicosis with diffuse goiter without thyrotoxic crisis or storm; N18.3 Chronic kidney disease, stage 3 (moderate); Z66 Do not resuscitate; Z51.5 Encounter for palliative care; H70.93 Unspecified mastoiditis, bilateral; I73.9 Peripheral vascular disease, unspecified; Z86.718 Personal history of other venous thrombosis and embolism; Z85.3 Personal history of malignant neoplasm of breast; Z98.42 Cataract extraction status, left eye; Z98.41 Cataract extraction status, right eye; Z90.710 Acquired absence of both cervix and uterus; Z85.038 Personal history of other malignant neoplasm of large intestine; Z95.0 Presence of cardiac pacemaker; Z95.820 Peripheral vascular angioplasty status with implants and grafts; Z90.49 Acquired absence of other specified parts of digestive tract; Z86.711 Personal history of pulmonary embolism; Z68.27 Body mass index [BMI] 27.0-27.9, adult; Z79.82 Long term (current) use of aspirin; Z79.899 Other long term (current) drug therapy
CPT/HCPCS: 10078; 10081; 10879; 27000